=== PATIENT | male | born 1945 | race Caucasian/White ===

== ENCOUNTER 2017-02-21 11:51 | Emergency (ER) | payer OTHER, MEDICARE ==
[2016-05-14 11:11] VITALS: Ht 180.3 cm; Wt 68.0 kg
[~2017-02-21] VITALS: Ht 180.3 cm; Wt 68.0 kg
[~2017-02-21 11:51] MED LIST: ACE3 PO; ANTIEMETIC; ASP325 PO; ASPI-1471 PO; DOC100 PO; FERR-103 PO; FERR159T PO; FOL1 PO; HYD2 PO; HYDR-393 PO; HYDROCODONE PO; INSU100V24 SUBQ; LACT10SO58 PO; LANI SUBQ; LEVO750T27 PO; LIPA1CAP PO; LIPA1CAP59 PO; MAGN250T5 PO; MAGN400T36 PO; MEP50 PO; MET10 PO; METXL50 PO; MULTIVITAMIN PO; MVM PO; MYLL PO; NO MEDS CURRENTLY; NYSL PO; OMEP-125 PO; OMEP-153 PO; OMEP-218 PO; OND4 PO; ONDA4TAB PO; OXYC10TA67 PO; PAN40 PO; PER PO; PRO25 PO; SPIR25TA78 PO; THIA100T55 PO; TRAM-420 PO; [UNRECOGNIZED DRUG - CODE] IV; [UNRECOGNIZED DRUG - CODE] PO
[2017-02-21 11:59] VITALS: BP 145/99
--- NOTE | 2017-02-21 12:00 | ER Report ---
History and Physical Time Seen By MD: 11:59 HPI/ROS CHIEF COMPLAINT: Abdominal pain HISTORY OF PRESENT ILLNESS: 72-year-old male patient presents to emergency room with complaint of abdominal pain. Patient states that he's had pain for the last 4-5 days in the left upper quadrant. States that seems to radiate down to the left lower quadrant. He states he is not had any nausea, vomiting or diarrhea. Patient states that there is nothing seems to make the pain better or worse. Patient states that the pain has been a 9 out of 10. He states that he talked with his primary care provider who recommended that he come here for further evaluation. Patient has a significant past medical history for pancreatic cancer, esophageal cancer. REVIEW OF SYSTEMS: Respiratory: No cough, no dyspnea. Cardiovascular: No chest pain, no palpitations. Gastrointestinal: As noted above Musculoskeletal: No back pain. Allergies: Coded Allergies: No Known Drug Allergies (Verified , 02/21/17) Home Meds Active Scripts Oxycodone Hcl (OXYCODONE HCL) 5 Mg Capsule, 5 MG PO Q4-6H Y for PAIN, #20 CAPSULE Prov:ABBY SANTOS 02/21/17 Insulin Glargine (LANTUS) 100 Unit/Ml Soln, 10 UNIT SUBQ QHS, #1 VIAL 1 Refill Prov:LISHA MCDUFFIE MD 05/17/16 Oxycodone/Acetaminophen (OXYCODONE/ACETAMINOPHEN 5MG/325 MG) 5 Mg/325 Mg Tab, 1- 2 TAB PO Q4H Y for BREAKTHROUGH PAIN, #30 TAB 0 Refills Prov:ILSHA MCDUFFIE MD 05/17/16 Insulin Lispro (HUMALOG) 100 Unit/1 Ml Vial, 2-10 UNIT SUBQ SS Y for SLIDING SCALE INSULIN, #1 VIAL 1 Refill Prov:LISHA MCDUFFIE MD 05/17/16 Levofloxacin 750 Mg Tab (LEVOFLOXACIN 750 MG TAB) 750 Mg Tablet, 750 MG PO QDAY@ 10, #7 TAB 1 Refill Prov:LISHA MCDUFFIE MD 05/17/16 Reported Medications Lipase/Protease/Amylase (MIMI VERA 6,000 UNITS CAPSULE) 1 Each Capsule.dr, 3 EACH PO TID 05/14/16 Magnesium Oxide (MAGNESIUM OXIDE) 400 Mg Tablet, 400 MG PO DAILY 05/14/16 Ferrous Sulfate, Dried (IRON) 159 Mg Tablet.er, 65 MG PO QODAY 10/15/13 Aspirin (ASPIR 81) 81 Mg Tablet.dr, 81 MG PO QDAY, TAB 10/15/13 Omeprazole (OMEPRAZOLE) 20 Mg Capsule.dr, 1 CAP PO QDAY TAKE ONE CAPSULE BY MOUTH ONCE A DAY 10/15/13 Past Medical/Surgical History Patient has a past medical history of pneumonia, esophageal cancer, pancreatic cancer, reflux, elevated liver enzymes, hiatal hernia, frequent urination, back pain, substance abuse, alcohol abuse. Patient has a surgical history of esophageal resection, splenectomy, pancreatic mass removal, colonoscopy, rib removal, tonsillectomy. Patient has a surgical history of CAD, stroke, diabetes. Reviewed Nurses Notes: Yes Hx Smoking: Yes Smoking Status: Former Smoker Hx Substance Use Disorder: Yes Hx Alcohol Use: Yes Constitutional Vital Sign - Last 24 Hours 02/21/17 02/21/17 11:59 12:50 Temp 98.5 Pulse 83 Resp 18 B/P (MAP) 145/99 Pulse Ox 95 O2 Delivery Room Air O2 Flow Rate 2.0 Intake and Output 02/21/17 02/21/17 02/22/17 15:00 23:00 07:00 Intake Total 1000 ml Balance 1000 ml Physical Exam General Appearance: The patient is alert, has no immediate need for airway protection and no current signs of toxicity. ENT: Tympanic membranes are pearly-carey, auditory canals are patent, mucous membranes are moist. Respiratory: Chest is non tender, lungs are clear to auscultation. Cardiac: regular rate and rhythm Gastrointestinal: Abdomen is soft and tender in the left upper quadrant, no masses, bowel sounds normal. Musculoskeletal: Neck: Neck is supple and non tender. Extremities have full range of motion and are non tender. Skin: No rashes or lesions. DIFFERENTIAL DIAGNOSIS: After history and physical exam differential diagnosis was considered for abdominal pain including but not limited to appendicitis, cholecystitis, gastritis and urinary tract infection. Medical Decision Making Data Points Result Diagram: 02/21/17 1215 02/21/17 1215 Laboratory Hematology Test 02/21/17 12:15 02/21/17 12:23 02/21/17 13:14 Red Blood Count 4.15 M/uL (4.00-5.60) Mean Corpuscular Volume 104.3 fL (80.0-96.0) Mean Corpuscular Hemoglobin 35.5 pg (26.0-33.0) Mean Corpuscular Hemoglobin Concent 34.0 g/dL (32.0-36.0) Red Cell Distribution Width 14.7 % (11.5-14.5) Mean Platelet Volume 8.4 fL (7.2-11.1) Neutrophils (%) (Auto) 48.3 % (39.4-72.5) Lymphocytes (%) (Auto) 37.7 % (17.6-49.6) Monocytes (%) (Auto) 12.2 % (4.1-12.4) Eosinophils (%) (Auto) 1.1 % (0.4-6.7) Basophils (%) (Auto) 0.7 % (0.3-1.4) Nucleated RBC Relative Count (auto) 0.2 /100WBC Neutrophils # (Auto) 4.7 K/uL (2.0-7.4) Lymphocytes # (Auto) 3.6 K/uL (1.3-3.6) Monocytes # (Auto) 1.2 K/uL (0.3-1.0) Eosinophils # (Auto) 0.1 K/uL (0.0-0.5) Basophils # (Auto) 0.1 K/uL (0.0-0.1) Nucleated RBC Absolute Count (auto) 0.02 K/uL Peripheral Blood Smear Y/N Sodium Level 137 mmol/L (137-145) Potassium Level 4.0 mmol/L (3.5-5.0) Chloride Level 98 mmol/L (98-107) Carbon Dioxide Level 16 mmol/L (22-30) Blood Urea Nitrogen 8 mg/dl (9-21) Creatinine 0.80 mg/dl (0.66-1.25) Glomerular Filtration Rate Calc > 60.0 Random Glucose 110 mg/dl (75-110) Calcium Level 9.3 mg/dl (8.4-10.2) Total Bilirubin 0.7 mg/dl (0.2-1.3) Aspartate Amino Transf (AST/SGOT) 167 U/L (0-35) Alanine Aminotransferase (ALT/SGPT) 129 U/L (0-56) Alkaline Phosphatase 162 U/L (0-126) Total Protein 7.0 gm/dl (6.3-8.2) Albumin 3.9 g/dl (3.5-5.0) Amylase Level 86 U/L (0-110) Lipase 55 U/L (23-300) Whole Blood Glucose 100 mg/DL (75-110) Urine Color Yellow Urine Clarity Clear Urine pH 6.0 pH (4.8-9.5) Urine Specific Howell 1.012 Urine Protein Negative mg/dL (NEGATIVE) Urine Glucose (UA) Negative mg/dL (NEGATIVE) Urine Ketones 20 mg/dL (NEGATIVE) Urine Blood Negative (NEGATIVE) Urine Nitrite Negative (NEGATIVE) Urine Bilirubin Negative (NEGATIVE) Urine Urobilinogen Negative mg/dL (0.2-1.9) Urine Leukocyte Esterase Negative (NEGATIVE) Urine RBC None /HPF (0-2/HPF) Urine WBC 2 /HPF (0-5/HPF) Urine Squamous Epithelial Cells Many /LPF (</=FEW) Urine Bacteria Negative /HPF (NONE-FEW) Urine Mucus Few /HPF (NONE-FEW) Chemistry Test 02/21/17 12:15 02/21/17 12:23 02/21/17 13:14 White Blood Count 9.7 k/uL (4.5-11.0) Red Blood Count 4.15 M/uL (4.00-5.60) Hemoglobin 14.7 g/dL (14.0-18.0) Hematocrit 43.3 % (42.0-52.0) Mean Corpuscular Volume 104.3 fL (80.0-96.0) Mean Corpuscular Hemoglobin 35.5 pg (26.0-33.0) Mean Corpuscular Hemoglobin Concent 34.0 g/dL (32.0-36.0) Red Cell Distribution Width 14.7 % (11.5-14.5) Platelet Count 209 K/uL (150-450) Mean Platelet Volume 8.4 fL (7.2-11.1) Neutrophils (%) (Auto) 48.3 % (39.4-72.5) Lymphocytes (%) (Auto) 37.7 % (17.6-49.6) Monocytes (%) (Auto) 12.2 % (4.1-12.4) Eosinophils (%) (Auto) 1.1 % (0.4-6.7) Basophils (%) (Auto) 0.7 % (0.3-1.4) Nucleated RBC Relative Count (auto) 0.2 /100WBC Neutrophils # (Auto) 4.7 K/uL (2.0-7.4) Lymphocytes # (Auto) 3.6 K/uL (1.3-3.6) Monocytes # (Auto) 1.2 K/uL (0.3-1.0) Eosinophils # (Auto) 0.1 K/uL (0.0-0.5) Basophils # (Auto) 0.1 K/uL (0.0-0.1) Nucleated RBC Absolute Count (auto) 0.02 K/uL Peripheral Blood Smear Y/N Glomerular Filtration Rate Calc > 60.0 Calcium Level 9.3 mg/dl (8.4-10.2) Total Bilirubin 0.7 mg/dl (0.2-1.3) Aspartate Amino Transf (AST/SGOT) 167 U/L (0-35) Alanine Aminotransferase (ALT/SGPT) 129 U/L (0-56) Alkaline Phosphatase 162 U/L (0-126) Total Protein 7.0 gm/dl (6.3-8.2) Albumin 3.9 g/dl (3.5-5.0) Amylase Level 86 U/L (0-110) Lipase 55 U/L (23-300) Whole Blood Glucose 100 mg/DL (75-110) Urine Color Yellow Urine Clarity Clear Urine pH 6.0 pH (4.8-9.5) Urine Specific Howell 1.012 Urine Protein Negative mg/dL (NEGATIVE) Urine Glucose (UA) Negative mg/dL (NEGATIVE) Urine Ketones 20 mg/dL (NEGATIVE) Urine Blood Negative (NEGATIVE) Urine Nitrite Negative (NEGATIVE) Urine Bilirubin Negative (NEGATIVE) Urine Urobilinogen Negative mg/dL (0.2-1.9) Urine Leukocyte Esterase Negative (NEGATIVE) Urine RBC None /HPF (0-2/HPF) Urine WBC 2 /HPF (0-5/HPF) Urine Squamous Epithelial Cells Many /LPF (</=FEW) Urine Bacteria Negative /HPF (NONE-FEW) Urine Mucus Few /HPF (NONE-FEW) Urinalysis Test 02/21/17 13:14 Urine Color Yellow Urine Clarity Clear Urine pH 6.0 pH (4.8-9.5) Urine Specific Howell 1.012 Urine Protein Negative mg/dL (NEGATIVE) Urine Glucose (UA) Negative mg/dL (NEGATIVE) Urine Ketones 20 mg/dL (NEGATIVE) Urine Blood Negative (NEGATIVE) Urine Nitrite Negative (NEGATIVE) Urine Bilirubin Negative (NEGATIVE) Urine Urobilinogen Negative mg/dL (0.2-1.9) Urine Leukocyte Esterase Negative (NEGATIVE) Urine RBC None /HPF (0-2/HPF) Urine WBC 2 /HPF (0-5/HPF) Urine Squamous Epithelial Cells Many /LPF (</=FEW) Urine Bacteria Negative /HPF (NONE-FEW) Urine Mucus Few /HPF (NONE-FEW) EKG/Imaging Imaging ABDOMEN/PELVIS WITH CONTRAST HISTORY: Left lower abdomen pain, history of esophageal and pancreatic cancer TECHNIQUE: Following administration of IV contrast contiguous axial images acquired through the abdomen/pelvis. Coronal and sagittal reformatting also performed. Dose Lowering Technique One of the following dose optimization techniques was utilized in the performance of this exam: Automated exposure control; adjustment of the mA and/ or kV according to the patient's size; or use of an iterative reconstruction technique. Specific details can be referenced in the facility's radiology CT exam operational policy. CONTRAST: 75 mL Isovue-370 COMPARISON: September 04, 2010 FINDINGS: Visualized lung bases: There Is a diaphragmatic hernia on the left containing fat stomach, splenic flexure and small bowel Hepatobiliary: There are postsurgical changes from a cholecystectomy with diffuse hepatic steatosis Spleen: Nonvisualized Adrenals: Negative. Pancreas: Body and tail of the pancreas not identified. The head appears slightly heterogeneous Kidneys ureters or bladder: Kidneys appear unremarkable. The bladder is moderately distended Genitalia: Prostate gland is moderately enlarged, heterogeneous and impinges upon the floor the bladder GI: Much of the stomach is located above the diaphragm. There are scattered diverticula seen through out the colon most prominent in the left side although no CT evidence of acute diverticulitis. The appendix is visualized does not appear inflamed Vessels/spaces/nodes: There moderate diffuse vascular calcifications present. Collateral vessels are seen adjacent to the stomach. Bones/soft tissues: There are postsurgical changes from a ventral hernia repair with mesh. There is diastases of the rectus sheath with outward bowing of the rectus sheath. . No aggressive appearing bone lesions are seen Additional findings: None pertinent. 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 The head the pancreas appear slightly heterogeneous There is moderate distention of the urinary bladder. The prostate gland is moderately enlarged heterogeneous and impinges upon the floor the bladder Scattered diverticulosis of colon although no CT evidence of acute diverticulitis Postsurgical changes from a ventral hernia repair with mesh. There is diastases of the rectus sheath and outward bowing of the rectus sheath. Report Dictated By: Rakel Hyde MD at 02/21/2017 1:22 PM Report E-Signed By: Rakel Hyde MD at 02/21/2017 1:35 PM ED Course/Re-evaluation ED Course Patient was admitted to exam room, history and physical were obtained. The differential diagnoses were considered. On examination patient has tenderness to the left upper quadrant. A CBC, CMP, urinalysis, CT scan of the abdomen and pelvis were done. The lab results were unremarkable except the patient did have elevated liver enzymes, MCV. Appears that he is a chronic drinker. Patient had a CT scan which showed a diaphragmatic hernia, with splenic flexure, small bowel and stomach extending through. I believe this is likely the source the pain. I discussed the case with Dr. Dowling, general surgeon, who recommended friend patient back to where he had surgery. Patient did have surgery in [place] for his esophageal cancer. I spoke with the hvac sales engineer, Dr. Dee, at [facility] who recommended [facility] for follow-up. I discussed this with patient. He stated that he would like to contact Dr. Emery. I feel that there is no harm in him discussing his case with Dr. Emery. Patient will be given a limited supply of pain medication discharged home at this time. Patient verbalized understanding and agreement. Decision to Disposition Date: Feb 21, 2017 Decision to Disposition Time: 15:14 Depart Departure Latest Vital Signs Vital Signs Date Time Temp Pulse Resp B/P (MAP) Pulse Ox O2 Delivery O2 Flow Rate FiO2 02/21/17 12:50 2.0 02/21/17 11:59 98.5 83 18 145/99 95 Room Air Impression: Primary Impression: Hernia Condition: Improved New Scripts Oxycodone Hcl (OXYCODONE HCL) 5 Mg Capsule 5 MG PO Q4-6H Y for PAIN, #20 CAPSULE Prov: ABBY SANTOS DRYING TUNNEL OPERATOR 02/21/17 Patient Instructions: Hiatal Hernia (ED) Additional Instructions: Limit activity by pain. Increase fluid intake. Get plenty of rest. Follow up with Surgeon, either Dr. Emery or: [facility] [address] [place], [place] ABBY SANTOS Feb 21, 2017 12:00
[2017-02-21] MEDS ORDERED: NS(*) 0.9% 1000 ML BAG 1,000 ML IV ONE (12:04)
[2017-02-21] MEDS ORDERED: MORPHINE 4 MG/ML SYR IVP ONE (12:10)
[2017-02-21 12:31] LABS: PLATELET COUNT, AUTOMATED 209 K/uL (150-450)
[2017-02-21] MEDS ORDERED: IOPAMIDOL 76% 75 ML INFUS BTL 75 ML ONE (12:35)
[2017-02-21] MEDS ORDERED: NS 0.9% 50 ML VIAL 50 ML ONE (12:35)
--- NOTE | 2017-02-21 13:41 | RADIOLOGY IMAGING REPORT ---
FACILITY: [facility] PATIENT NAME: Renard Rai : 1945 MR: [id number] V: [id number] EXAM DATE: ORDERING PHYSICIAN: ABBY SANTOS TECHNOLOGIST: Location: [facility] [place] Patient: Renard Rai : 1945 Visit/Account:[id number] Date of Sevice: 02/21/2017 ABDOMEN/PELVIS WITH CONTRAST HISTORY: Left lower abdomen pain, history of esophageal and pancreatic cancer TECHNIQUE: Following administration of IV contrast contiguous axial images acquired through the abdom en/pelvis. Coronal and sagittal reformatting also performed. Dose Lowering Technique One of the following dose optimization techniques was utilized in the performance of this exam: Autom ated exposure control; adjustment of the mA and/or kV according to the patient's size; or use of an i terative reconstruction technique. Specific details can be referenced in the facility's radiology C T exam operational policy. CONTRAST: 75 mL Isovue-370 COMPARISON: September 04, 2010 FINDINGS: Visualized lung bases: There Is a diaphragmatic hernia on the left containing fat stomach, splenic fl exure and small bowel Hepatobiliary: There are postsurgical changes from a cholecystectomy with diffuse hepatic steatosis Spleen: Nonvisualized Adrenals: Negative. Pancreas: Body and tail of the pancreas not identified. The head appears slightly heterogeneous Kidneys ureters or bladder: Kidneys appear unremarkable. The bladder is moderately distended Genitalia: Prostate gland is moderately enlarged, heterogeneous and impinges upon the floor the blad peng GI: Much of the stomach is located above the diaphragm. There are scattered diverticula seen throug h out the colon most prominent in the left side although no CT evidence of acute diverticulitis. The appendix is visualized does not appear inflamed Vessels/spaces/nodes: There moderate diffuse vascular calcifications present. Collateral vessels ar e seen adjacent to the stomach. Bones/soft tissues: There are postsurgical changes from a ventral hernia repair with mesh. There is diastases of the rectus sheath with outward bowing of the rectus sheath. . No aggressive appearing bone lesions are seen Additional findings: None pertinent. 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 The head the pancreas appear slightly heterogeneous There is moderate distention of the urinary bladder. The prostate gland is moderately enlarged heter ogeneous and impinges upon the floor the bladder Scattered diverticulosis of colon although no CT evidence of acute diverticulitis Postsurgical changes from a ventral hernia repair with mesh. There is diastases of the rectus sheath and outward bowing of the rectus sheath. Report Dictated By: Rakel Hyde MD at 02/21/2017 1:22 PM Report E-Signed By: Rakel Hyde MD at 02/21/2017 1:35 PM WSN:[id number]
[2017-02-21] MEDS ORDERED: oxyCODONE HCL 5 MG CAP PO ONE (14:50)
[2017-02-21] MEDS ORDERED: OXYC5CAP21 PO (15:14)
== END 2017-02-21 15:20 | disposition home or self-care (01) ==
LOC: ER 12:03
DX: K44.9 Diaphragmatic hernia without obstruction or gangrene (principal); E11.9 Type 2 diabetes mellitus without complications
CPT/HCPCS: 36416; 74177; 81001; 82150; 82948; 83690; 85025; 87088; 96361; 96374; 99284; J2270; J7030; J7050; Q9967; 82040; 82247; 82310; 82374; 82435; 82565; 82947; 84075; 84132; 84155; 84295; 84450; 84460; 84520

== ENCOUNTER 2017-08-24 10:12 | Emergency (ER) | payer MEDICARE ==
[2016-05-14 11:11] VITALS: Wt 68.1 kg
[~2017-08-24 10:12] MED LIST changes: +OXYC5CAP21 PO
[2017-08-24] MEDS ORDERED: METF-411 PO (10:26)
[2017-08-24] MEDS ORDERED: FAMOTIDINE(*) 20MG/50ML PREMIX 50 ML IVPB ONE (11:11)
[2017-08-24 11:30] LABS: PLATELET COUNT, AUTOMATED 203 K/uL (150-450)
[2017-08-24] MEDS ORDERED: IOPAMIDOL 76% 100 ML INFUS BTL 100 ML ONE (12:20)
--- NOTE | 2017-08-24 13:23 | RADIOLOGY IMAGING REPORT ---
FACILITY: [facility] [place] PATIENT NAME: Renard Rai : 1945 MR: [id number] V: [id number] EXAM DATE: ORDERING PHYSICIAN: TALON RICHARD TECHNOLOGIST: Location: [facility] [place] Patient: Renard Rai : 1945 Visit/Account:[id number] Date of Sevice: 08/24/2017 CT abdomen and pelvis with IV contrast Indication: Abdominal pain. Comparison: 02/21/2017.. Technique: Axial CT images were obtained through the abdomen and pelvis during injection of nonioni c iodinated intravenous contrast. Reformatted coronal and sagittal images were also obtained. One of the following dose optimization techniques was utilized in the performance of this exam: Autom ated exposure control; adjustment of the mA and/or kV according to the patient's size; or use of an i terative reconstruction technique. Specific details can be referenced in the facility's radiology C T exam operational policy. Contrast: 75 ml of Isovue-370 IV contrast. Findings: Lower lung epperson: Lung bases are clear. There is still a moderate left diaphragmatic hernia containi ng fat, vessels and bowel. Multiple surgical clips. No change in its appearance from the previous exa m. Liver: No focal parenchymal abnormality of the liver. Biliary: Status post cholecystectomy. Biliary system is unremarkable. Pancreas: This is pancreas does show some mild fatty infiltration. No focal abnormality. Spleen: Surgically removed. Adrenal glands: Unremarkable. Kidneys / retroperitoneum: No evidence of nephrolithiasis or hydronephrosis the left kidney does show a stable subcentimeter hypodensity which too small to characterize and statistically tiny cyst. No s olid renal lesions. Bowel / peritoneum / mesenteries: There is diffuse: Diverticula more so in the sigmoid region. No per icolonic inflammation. The cecum does show circumferential wall thickening without a focal lesion lamonte ntified or surrounding inflammation. The colon shows no other focal abnormality. The small bowel show s no focal abnormality or obstruction. The stomach shows a stable moderate hiatal hernia without othe r focal abnormality. No free air, free fluid, fluid collections or areas of inflammation. There is a small [place] ventr al hernia containing fat which is stable. Lymph node assessment: No pathologic adenopathy identified. Pelvic structures: Prostate is enlarged and heterogeneous without focal abnormality. This does cau se some impression to the urinary bladder. The remaining pelvic structures visualized within normal l imits. Vessels: Mild atherosclerotic calcifications seen throughout a nonaneurysmal abdominal aorta and bran ches. Musculoskeletal / Body wall: No acute or aggressive osseous abnormality. Old healing fractures of the left L3 and L4 transverse process. Continued degenerative changes of the spine with minimal posterio r spinal listhesis of L2 over L3. IMPRESSION: 1. The cecum does show circumferential wall thickening without defined lesion or surrounding inflamma tion. This could be secondary to early focal colitis. Other etiologies could be due to neoplastic inv olvement. Follow-up colonoscopy may be able to further evaluate. 2. Diverticulosis without radiographic indication of diverticulitis. 3. Continued moderate left diaphragmatic hernia containing fat, vessels and bowel without acute abnor mality. 4. Other stable chronic findings as above. Report Dictated By: Gagan Escoto at 08/24/2017 1:06 PM Report E-Signed By: Gagan Escoto at 08/24/2017 1:19 PM WSN:[id number]
[2017-08-24 13:30] VITALS: BP 120/79
--- NOTE | 2017-08-24 13:35 | ER Report ---
History and Physical Time Seen By MD: 11:00 Hx. of Stated Complaint: "my hiatal hernia is poking through" for 3 days, pt reports "self medicating" with whiskey, pt reports the [facility] "usually" gives him hydrocodone but has recently been "weaning" him off HPI/ROS CHIEF COMPLAINT: Abdominal pain HISTORY OF PRESENT ILLNESS: Patient is a 72-year-old male who was the ED with complaint of abdominal pain for the past 4 days. He states that he has been having intermittent abdominal pain for the past 1-2 years due to a hiatal hernia. He states that he has an appointment with Dr. Allred, surgery, for evaluation of this in 2 weeks. He states that he has only noted pain and denies any nausea, vomiting, diarrhea. He states that he has had normal bowel movements without any black or bloody bowel movements appreciated. Patient denies any chest pain or shortness of breath. He states that he has a history of esophageal pancreatic cancer and has had performed move full esophagus and pancreas. He states that he no longer has a surgeon in [place] that he sees. He states that he has seen Dr. Dr. Emery the past as well. He denies any fever. He has not taken any medication for the pain. He states that he has been self-medicating with whiskey. He is uncertain how much he has drank today. REVIEW OF SYSTEMS: Constitutional: No fever, no chills. Eyes: No discharge. ENT: No sore throat. Cardiovascular: No chest pain, no palpitations. Respiratory: No cough, no shortness of breath. Gastrointestinal: See history of present illness. Genitourinary: No hematuria. Musculoskeletal: No back pain. Skin: No rashes. Neurological: No headache. Allergies: Coded Allergies: No Known Drug Allergies (Verified , 08/24/17) Home Meds Active Scripts Insulin Lispro 100 Un/Ml Vial (HUMALOG 100 U/ML VIAL) 100 Unit/1 Ml Vial, 2-10 UNIT SUBQ SS Y for SLIDING SCALE INSULIN, #1 VIAL 1 Refill Prov:LISHA MCDUFFIE MD 05/17/16 Reported Medications Metformin Hcl (METFORMIN HCL) 500 Mg Tablet, PO BID, TAB 08/24/17 Lipase/Protease/Amylase (MIMI VERA 6,000 UNITS CAPSULE) 1 Each Capsule.dr, 3 EACH PO TID 05/14/16 Magnesium Oxide (MAGNESIUM OXIDE) 400 Mg Tablet, 400 MG PO DAILY 05/14/16 Ferrous Sulfate, Dried (IRON) 159 Mg Tablet.er, 65 MG PO QODAY 10/15/13 Aspirin (ASPIR 81) 81 Mg Tablet.dr, 81 MG PO QDAY, TAB 10/15/13 Discontinued Reported Medications Omeprazole (OMEPRAZOLE) 20 Mg Capsule.dr, 1 CAP PO QDAY TAKE ONE CAPSULE BY MOUTH ONCE A DAY 10/15/13 Discontinued Scripts Oxycodone Hcl (OXYCODONE HCL) 5 Mg Capsule, 5 MG PO Q4-6H Y for PAIN, #20 CAPSULE Prov:ABBY SANTOS RING STRIKER 02/21/17 Insulin Glargine (LANTUS) 100 Unit/Ml Soln, 10 UNIT SUBQ QHS, #1 VIAL 1 Refill Prov:LISHA MCDUFFIE MD 05/17/16 Oxycodone/Acetaminophen (OXYCODONE/ACETAMINOPHEN 5MG/325 MG) 5 Mg/325 Mg Tab, 1- 2 TAB PO Q4H Y for BREAKTHROUGH PAIN, #30 TAB 0 Refills Prov:LISHA MCDUFFIE MD 05/17/16 Levofloxacin 750 Mg Tab (LEVOFLOXACIN 750 MG TAB) 750 Mg Tablet, 750 MG PO QDAY@ 10, #7 TAB 1 Refill Prov:LISHA MCDUFFIE MD 05/17/16 Reviewed Nurses Notes: Yes Old Medical Records Reviewed: Yes Hx Smoking: Yes Smoking Status: Former Smoker Hx Substance Use Disorder: Yes Hx Alcohol Use: Yes Constitutional Vital Sign - Last 24 Hours 08/24/17 08/24/17 08/24/17 08/24/17 10:16 10:16 10:30 10:45 Temp 97.5 Pulse 75 82 81 Resp 16 B/P (MAP) 139/86 139/86 (103) 130/85 (100) 126/95 (105) Pulse Ox 90 88 87 O2 Delivery Room Air 08/24/17 08/24/17 08/24/17 08/24/17 11:00 11:15 11:30 11:45 Pulse 77 88 83 83 B/P (MAP) 123/84 (97) 119/81 (94) 105/78 (87) 116/86 (96) Pulse Ox 90 89 89 89 Intake and Output 08/24/17 08/24/17 08/25/17 14:59 22:59 06:59 Intake Total 50 ml Balance 50 ml Physical Exam General Appearance: The patient is alert, has no immediate need for airway protection and no signs of toxicity. Patient appears to be no acute distress. Eyes: Pupils equal and round no pallor or injection. ENT, Mouth: Mucous membranes are moist. Respiratory: There are no retractions, lungs are clear to auscultation. Cardiovascular: Regular rate and rhythm. Gastrointestinal: There is some abdominal pain with palpation of the epigastric region. Normal bowel sounds in all 4 quadrants. Bowel regarding his present. Skin: Warm and dry, no rashes. Musculoskeletal: Neck is supple non tender. Extremities are nontender, nonswollen and have full range of motion. DIFFERENTIAL DIAGNOSIS: After history and physical exam differential diagnosis was considered for abdominal pain including but not limited to appendicitis, cholecystitis, gastritis and urinary tract infection. Medical Decision Making Data Points Result Diagram: 08/24/17 1123 08/24/17 1123 Laboratory Hematology Test 08/24/17 11:23 08/24/17 11:36 Red Blood Count 4.25 M/uL (4.00-5.60) Mean Corpuscular Volume 101.9 fL (80.0-96.0) Mean Corpuscular Hemoglobin 35.1 pg (26.0-33.0) Mean Corpuscular Hemoglobin Concent 34.4 g/dL (32.0-36.0) Red Cell Distribution Width 14.5 % (11.5-14.5) Mean Platelet Volume 8.2 fL (7.2-11.1) Neutrophils (%) (Auto) 42.0 % (39.4-72.5) Lymphocytes (%) (Auto) 43.4 % (17.6-49.6) Monocytes (%) (Auto) 11.2 % (4.1-12.4) Eosinophils (%) (Auto) 1.9 % (0.4-6.7) Basophils (%) (Auto) 1.5 % (0.3-1.4) Nucleated RBC Relative Count (auto) 0.1 /100WBC Neutrophils # (Auto) 2.8 K/uL (2.0-7.4) Lymphocytes # (Auto) 2.9 K/uL (1.3-3.6) Monocytes # (Auto) 0.7 K/uL (0.3-1.0) Eosinophils # (Auto) 0.1 K/uL (0.0-0.5) Basophils # (Auto) 0.1 K/uL (0.0-0.1) Nucleated RBC Absolute Count (auto) 0.01 K/uL Sodium Level 139 mmol/L (137-145) Potassium Level 3.6 mmol/L (3.5-5.0) Chloride Level 98 mmol/L (98-107) Carbon Dioxide Level 17 mmol/L (22-30) Blood Urea Nitrogen 6 mg/dl (9-21) Creatinine 0.80 mg/dl (0.66-1.25) Glomerular Filtration Rate Calc > 60.0 Random Glucose 111 mg/dl (75-110) Calcium Level 8.8 mg/dl (8.4-10.2) Total Bilirubin 0.8 mg/dl (0.2-1.3) Aspartate Amino Transf (AST/SGOT) 141 U/L (0-35) Alanine Aminotransferase (ALT/SGPT) 97 U/L (0-56) Alkaline Phosphatase 140 U/L (0-126) Total Protein 7.3 g/dl (6.3-8.2) Albumin 4.2 g/dl (3.5-5.0) Lipase 31 U/L (23-300) Serum Alcohol 275 mg/dl Urine Color Yellow Urine Clarity Clear Urine pH 6.0 pH (4.8-9.5) Urine Specific [place] 1.005 Urine Protein Negative mg/dL (NEGATIVE) Urine Glucose (UA) Negative mg/dL (NEGATIVE) Urine Ketones Trace mg/dL (NEGATIVE) Urine Blood Negative (NEGATIVE) Urine Nitrite Negative (NEGATIVE) Urine Bilirubin Negative (NEGATIVE) Urine Urobilinogen 2.0 mg/dL (0.2-1.9) Urine Leukocyte Esterase Negative (NEGATIVE) Urine RBC <1 /HPF (0-2/HPF) Urine WBC <1 /HPF (0-5/HPF) Urine Squamous Epithelial Cells Moderate /LPF (</=FEW) Urine Bacteria Negative /HPF (NONE-FEW) Urine Mucus None /HPF (NONE-FEW) Chemistry Test 08/24/17 11:23 08/24/17 11:36 White Blood Count 6.6 k/uL (4.5-11.0) Red Blood Count 4.25 M/uL (4.00-5.60) Hemoglobin 14.9 g/dL (14.0-18.0) Hematocrit 43.3 % (42.0-52.0) Mean Corpuscular Volume 101.9 fL (80.0-96.0) Mean Corpuscular Hemoglobin 35.1 pg (26.0-33.0) Mean Corpuscular Hemoglobin Concent 34.4 g/dL (32.0-36.0) Red Cell Distribution Width 14.5 % (11.5-14.5) Platelet Count 203 K/uL (150-450) Mean Platelet Volume 8.2 fL (7.2-11.1) Neutrophils (%) (Auto) 42.0 % (39.4-72.5) Lymphocytes (%) (Auto) 43.4 % (17.6-49.6) Monocytes (%) (Auto) 11.2 % (4.1-12.4) Eosinophils (%) (Auto) 1.9 % (0.4-6.7) Basophils (%) (Auto) 1.5 % (0.3-1.4) Nucleated RBC Relative Count (auto) 0.1 /100WBC Neutrophils # (Auto) 2.8 K/uL (2.0-7.4) Lymphocytes # (Auto) 2.9 K/uL (1.3-3.6) Monocytes # (Auto) 0.7 K/uL (0.3-1.0) Eosinophils # (Auto) 0.1 K/uL (0.0-0.5) Basophils # (Auto) 0.1 K/uL (0.0-0.1) Nucleated RBC Absolute Count (auto) 0.01 K/uL Glomerular Filtration Rate Calc > 60.0 Calcium Level 8.8 mg/dl (8.4-10.2) Total Bilirubin 0.8 mg/dl (0.2-1.3) Aspartate Amino Transf (AST/SGOT) 141 U/L (0-35) Alanine Aminotransferase (ALT/SGPT) 97 U/L (0-56) Alkaline Phosphatase 140 U/L (0-126) Total Protein 7.3 g/dl (6.3-8.2) Albumin 4.2 g/dl (3.5-5.0) Lipase 31 U/L (23-300) Serum Alcohol 275 mg/dl Urine Color Yellow Urine Clarity Clear Urine pH 6.0 pH (4.8-9.5) Urine Specific [place] 1.005 Urine Protein Negative mg/dL (NEGATIVE) Urine Glucose (UA) Negative mg/dL (NEGATIVE) Urine Ketones Trace mg/dL (NEGATIVE) Urine Blood Negative (NEGATIVE) Urine Nitrite Negative (NEGATIVE) Urine Bilirubin Negative (NEGATIVE) Urine Urobilinogen 2.0 mg/dL (0.2-1.9) Urine Leukocyte Esterase Negative (NEGATIVE) Urine RBC <1 /HPF (0-2/HPF) Urine WBC <1 /HPF (0-5/HPF) Urine Squamous Epithelial Cells Moderate /LPF (</=FEW) Urine Bacteria Negative /HPF (NONE-FEW) Urine Mucus None /HPF (NONE-FEW) Toxicology Test 08/24/17 11:23 Serum Alcohol 275 mg/dl Urinalysis Test 08/24/17 11:36 Urine Color Yellow Urine Clarity Clear Urine pH 6.0 pH (4.8-9.5) Urine Specific [place] 1.005 Urine Protein Negative mg/dL (NEGATIVE) Urine Glucose (UA) Negative mg/dL (NEGATIVE) Urine Ketones Trace mg/dL (NEGATIVE) Urine Blood Negative (NEGATIVE) Urine Nitrite Negative (NEGATIVE) Urine Bilirubin Negative (NEGATIVE) Urine Urobilinogen 2.0 mg/dL (0.2-1.9) Urine Leukocyte Esterase Negative (NEGATIVE) Urine RBC <1 /HPF (0-2/HPF) Urine WBC <1 /HPF (0-5/HPF) Urine Squamous Epithelial Cells Moderate /LPF (</=FEW) Urine Bacteria Negative /HPF (NONE-FEW) Urine Mucus None /HPF (NONE-FEW) EKG/Imaging Imaging CT Abdomen/Pelvis: IMPRESSION: 1. The cecum does show circumferential wall thickening without defined lesion or surrounding inflammation. This could be secondary to early focal colitis. Other etiologies could be due to neoplastic involvement. Follow-up colonoscopy may be able to further evaluate. 2. Diverticulosis without radiographic indication of diverticulitis. 3. Continued moderate left diaphragmatic hernia containing fat, vessels and bowel without acute abnormality. 4. Other stable chronic findings as above. Report Dictated By: Gagan Escoto at 08/24/2017 1:06 PM Report E-Signed By: Gagan Escoto at 08/24/2017 1:19 PM ED Course/Re-evaluation ED Course He has elevation of his liver enzymes likely secondary to alcohol intoxication. His alcohol level is at 275. Patient was given 20 mg IV Pepcid with some relief. 08/24/2017 1:33:07 pm - discussed CT results with patient. It appears that he does have some colonic wall thickening that should be evaluated with colonoscopy. He also does have his hiatal hernia but without any acute abnormalities appreciated. We'll refer patient to Dr. Allred, surgery who he does have an appointment with for further evaluation of these issues on CT. Decision to Disposition Date: Aug 24, 2017 Decision to Disposition Time: 13:33 Depart Departure Latest Vital Signs Vital Signs Date Time Temp Pulse Resp B/P (MAP) Pulse Ox O2 Delivery O2 Flow Rate FiO2 08/24/17 11:45 83 116/86 (96) 89 08/24/17 10:16 97.5 16 Room Air Impression: Primary Impression: Abdominal pain Additional Impressions: Hiatal hernia Colonic thickening Condition: Improved Disposition: HOME OR SELF-CARE Referrals: JUSTA MONTGOMERY MD Patient Instructions: Abdominal Pain (ED), Epigastric Pain (ED), Hiatal Hernia (ED) Additional Instructions: Stay well-hydrated. Follow with primary care provider and Gen. surgery in 2-3 days. If having any worsening or concerning symptoms may return to the emergency department. Problem Qualifiers Primary Impression: Abdominal pain Abdominal location: epigastric Qualified Codes: R10.13 - Epigastric pain TALON RICHARD PA-C Aug 24, 2017 13:35
== END 2017-08-24 13:56 | disposition home or self-care (01) ==
LOC: ER 10:21
DX: K44.9 Diaphragmatic hernia without obstruction or gangrene (principal); R10.9 Unspecified abdominal pain; K63.89 Other specified diseases of intestine
CPT/HCPCS: 74177; 81001; 83690; 85025; 96374; 99283; G0480; J3490; Q9967; 80320; 82040; 82247; 82310; 82374; 82435; 82565; 82947; 84075; 84132; 84155; 84295; 84450; 84460; 84520

== ENCOUNTER → 2017-08-26 | Outpatient (CLI) | payer MEDICARE ==
[~2017-08-26] MED LIST changes: +METF-411 PO
--- NOTE | 2017-08-26 20:20 | RADIOLOGY IMAGING REPORT ---
FACILITY: [facility] PATIENT NAME: Renard Rai : 03/19/1971 MR: [id number] V: [id number] EXAM DATE: ORDERING PHYSICIAN: JUSTA MONTGOMERY TECHNOLOGIST: Location: [facility] Patient: Renard Rai : 03/19/1971 Visit/Account:[id number] Date of Sevice: 08/26/2017 2 VIEWS CHEST INDICATION: Chronic cough. COMPARISON: None available FINDINGS: Cardiomediastinal silhouette and pulmonary vessels within normal limits. There is no focal infiltrate or lobar consolidation. There is no pneumothorax or pleural effusion. No nodule. Upper abdomen is unremarkable. Surgical clips in the left upper abdomen. No acute bony abnormality. IMPRESSION: 1. No acute cardiopulmonary process. Report Dictated By: Gagan Escoto at 08/26/2017 8:13 PM Report E-Signed By: Gagan Escoto at 08/26/2017 8:15 PM WSN:[id number]
--- NOTE | 2017-08-29 17:21 | RADIOLOGY IMAGING REPORT ---
FACILITY: [facility] [place] PATIENT NAME: Renard Rai : 1945 MR: [id number] V: [id number] EXAM DATE: ORDERING PHYSICIAN: JUSTA MONTGOMERY TECHNOLOGIST: Location: [facility] [place] Patient: Renard Rai : 1945 Visit/Account:[id number] Date of Sevice: 08/26/2017 CHEST PA AND LAT INDICATION: Shortness of breath COMPARISON: 05/14/2016 FINDINGS: Heart size within normal limits. There is no focal infiltrate or lobar consolidation. Scarring is again noted within the left lung There is no pneumothorax or pleural effusion. IMPRESSION: 1. No acute cardiopulmonary process. Report Dictated By: Darrell Radford at 08/29/2017 5:16 PM Report E-Signed By: Darrell Radford at 08/29/2017 5:17 PM WSN:[id number]
== END ==
LOC: RAD 16:31 → EDUNIT# 16:31
PROVIDERS: ATTEND Surgery
DX: R05 Cough (principal); R06.02 Shortness of breath; R68.83 Chills (without fever)
CPT/HCPCS: 71046

== ENCOUNTER 2017-12-01 17:39 | Emergency (ER) | payer MEDICARE ==
[2016-05-14 11:11] VITALS: Wt 68.0 kg
[~2017-12-01 17:39] MED LIST changes: -GABA-549 PO; -MULT-40; -TAMS0.4C70 PO
[2017-12-01] MEDS ORDERED: NS(*) 0.9% 1000 ML BAG 1,000 ML IV ONE ×2 (18:01→18:30)
[2017-12-01] MEDS ORDERED: GABA-549 PO (18:04)
[2017-12-01] MEDS ORDERED: TAMS0.4C70 PO (18:04)
[2017-12-01] MEDS ORDERED: LIPA1CAP59 PO (18:04)
[2017-12-01] MEDS ORDERED: MULT-40 (18:04)
[2017-12-01] MEDS ORDERED: ASPI-1471 PO (18:04)
--- NOTE | 2017-12-01 18:07 | ER Report ---
History and Physical Time Seen By MD: 18:00 Hx. of Stated Complaint: WEAKNESS HPI/ROS CHIEF COMPLAINT: Weakness, illness HISTORY OF PRESENT ILLNESS: 72-year-old male with history of distant alcoholism, pancreatic esophageal cancer status post resection. Presents with 2 days of worsening illness. He denies fever, chills, productive cough, shortness of breath or vomiting. He just describes general weakness and fatigue. He appears grossly dehydrated. He notes no dysuria and no diarrhea. Fingerstick glucose was documented at 107. He has a type II diabetic, insulin required. He denies chest pain. He has grossly hypotensive. Patient admits to no less than 3 shots of alcohol per day. His last shot of alcohol was noon today REVIEW OF SYSTEMS: Respiratory: No cough, no dyspnea. Cardiovascular: No chest pain, no palpitations. Gastrointestinal: No vomiting, no abdominal pain. Musculoskeletal: No back pain. Allergies: Coded Allergies: No Known Drug Allergies (Verified , 12/01/17) Home Meds Active Scripts Insulin Lispro 100 Un/Ml Vial (HUMALOG 100 U/ML VIAL) 100 Unit/1 Ml Vial, 2-10 UNIT SUBQ SS PRN for SLIDING SCALE INSULIN, #1 VIAL 1 Refill Prov:LISHA MCDUFFIE MD 05/17/16 Reported Medications Multivit-Min/Iron Fum/Folic AC (Rkisb-Kvtsysq-Rqqlzupo Tablet) 7.5 Mg Iron-400 Mcg Tablet, DAILY 12/01/17 Aspirin (ASPIR 81) 81 Mg Tablet.dr, 81 MG PO QDAY, TAB 12/01/17 Lipase/Protease/Amylase (CREON DR 6,000 UNITS CAPSULE) 1 Each Capsule.dr, 1 EACH PO 2-4XD for Nausea 12/01/17 Tamsulosin Hcl (TAMSULOSIN HCL) 0.4 Mg Cap.er.24h, 0.4 MG PO QDAY, CAP 12/01/17 Gabapentin (GABAPENTIN) 300 Mg Capsule, 300 MG PO BID, CAPSULE 12/01/17 Metformin Hcl (METFORMIN HCL) 500 Mg Tablet, PO BID, TAB 08/24/17 Past Medical/Surgical History Patient has a past medical history of pneumonia, esophageal cancer, pancreatic cancer, reflux, elevated liver enzymes, hiatal hernia, frequent urination, back pain, substance abuse, alcohol abuse. Patient has a surgical history of esophageal resection, splenectomy, pancreatic mass removal, colonoscopy, rib removal, tonsillectomy. Patient has a surgical history of CAD, stroke, diabetes. Hx Smoking: Yes Smoking Status: Never Smoker, Former Smoker Hx Substance Use Disorder: Yes Hx Alcohol Use: Yes Constitutional Vital Sign - Last 24 Hours 12/01/17 12/01/17 12/01/17 12/01/17 17:39 17:47 17:49 17:54 Temp 97.5 Pulse 118 105 101 Resp 11 12 12 B/P (MAP) 85/50 (62) 85/50 Pulse Ox 92 91 94 O2 Delivery Room Air Room Air Room Air 12/01/17 12/01/17 12/01/17 12/01/17 17:56 18:00 18:09 18:15 Pulse 111 Resp 13 B/P (MAP) 72/54 (60) 87/47 (60) 90/55 (67) Pulse Ox 92 O2 Delivery Room Air 12/01/17 12/01/17 12/01/17 12/01/17 18:20 18:30 18:35 18:40 Pulse 110 112 108 Resp 14 16 12 B/P (MAP) 92/57 (69) Pulse Ox 92 92 93 O2 Delivery Room Air Room Air Room Air 12/01/17 12/01/17 12/01/17 12/01/17 18:45 18:55 19:00 19:10 Pulse 120 113 Resp 21 16 B/P (MAP) 95/52 (66) 96/47 (63) Pulse Ox 96 91 O2 Delivery Room Air Room Air 12/01/17 12/01/17 12/01/17 12/01/17 19:15 19:30 19:35 19:45 Pulse 109 111 111 Resp 13 20 13 B/P (MAP) 100/49 (66) 83/60 (68) 104/56 (72) Pulse Ox 93 90 96 O2 Delivery Room Air Room Air Room Air 12/01/17 12/01/17 12/01/17 12/01/17 19:50 20:00 20:05 20:15 Pulse 109 117 Resp 16 27 B/P (MAP) 106/57 (73) 85/54 (64) Pulse Ox 91 92 O2 Delivery Room Air Room Air 12/01/17 12/01/17 12/01/17 12/01/17 20:20 20:25 20:30 20:40 Pulse 111 112 110 Resp 16 10 13 B/P (MAP) 102/69 (80) Pulse Ox 93 95 95 O2 Delivery Room Air Room Air Room Air 12/01/17 12/01/17 12/01/17 12/01/17 20:45 20:50 21:00 21:05 Pulse 111 112 Resp 13 16 B/P (MAP) 104/63 (77) 96/59 (71) Pulse Ox 94 94 O2 Delivery Room Air Room Air 12/01/17 21:15 B/P (MAP) 105/56 (72) Physical Exam Vital signs stable, grossly hypotensive 72/52, mildly tachycardiac at 109. Pulse ox normal General Appearance: The patient is alert, has no immediate need for airway protection and no current signs of toxicity. Slightly pale appearing, dehydrated, decreased turgor HEENT: Pupils equal and round no injection. Anicteric sclera, oropharynx with mild erythema Respiratory: Chest is non tender, lungs are clear to auscultation. Cardiac: regular rate and rhythm Gastrointestinal: Abdomen is soft and non tender, no masses, bowel sounds normal. Musculoskeletal: Neck: Neck is supple and non tender. No JVD, no lymphadenopathy Extremities have full range of motion and are non tender. No edema, no calf tenderness Skin: No rashes or lesions. DIFFERENTIAL DIAGNOSIS: After history and physical exam differential diagnosis was considered for weakness including but not limited to electrolyte abnormality, depression, anxiety, CVA, spinal cord abnormality, and infectious causes. Medical Decision Making Data Points Result Diagram: 12/01/17 1745 12/01/17 1745 Laboratory Hematology Test 12/01/17 17:45 12/01/17 18:40 12/01/17 20:13 Red Blood Count 4.30 M/uL (4.00-5.60) Mean Corpuscular Volume 110.6 fL (80.0-96.0) Mean Corpuscular Hemoglobin 36.6 pg (26.0-33.0) Mean Corpuscular Hemoglobin Concent 33.1 g/dL (32.0-36.0) Red Cell Distribution Width 15.0 % (11.5-14.5) Mean Platelet Volume 9.2 fL (7.2-11.1) Neutrophils (%) (Auto) 74.1 % (39.4-72.5) Lymphocytes (%) (Auto) 17.8 % (17.6-49.6) Monocytes (%) (Auto) 7.4 % (4.1-12.4) Eosinophils (%) (Auto) 0.4 % (0.4-6.7) Basophils (%) (Auto) 0.3 % (0.3-1.4) Nucleated RBC Relative Count (auto) 0.1 /100WBC Neutrophils # (Auto) 5.7 K/uL (2.0-7.4) Lymphocytes # (Auto) 1.4 K/uL (1.3-3.6) Monocytes # (Auto) 0.6 K/uL (0.3-1.0) Eosinophils # (Auto) 0.0 K/uL (0.0-0.5) Basophils # (Auto) 0.0 K/uL (0.0-0.1) Nucleated RBC Absolute Count (auto) 0.01 K/uL Peripheral Blood Smear Yes Y/N Sodium Level 139 mmol/L (137-145) Potassium Level 5.1 mmol/L (3.5-5.0) Chloride Level 97 mmol/L (98-107) Carbon Dioxide Level 8 mmol/L (22-30) Blood Urea Nitrogen 18 mg/dl (9-21) Creatinine 1.30 mg/dl (0.66-1.25) Glomerular Filtration Rate Calc 54.6 Random Glucose 90 mg/dl (75-110) Lactate 11.7 mmol/L (0.7-2.1) Calcium Level 9.0 mg/dl (8.4-10.2) Total Bilirubin 0.8 mg/dl (0.2-1.3) Aspartate Amino Transf (AST/SGOT) 291 U/L (0-35) Alanine Aminotransferase (ALT/SGPT) 160 U/L (0-56) Alkaline Phosphatase 153 U/L (0-126) Troponin I 0.013 ng/ml C-Reactive Protein < 0.5 mg/dl (<1.0) Total Protein 7.4 g/dl (6.3-8.2) Albumin 4.1 g/dl (3.5-5.0) Lipase 56 U/L (23-300) Serum Alcohol 293 mg/dl Acetone, Qualitative Negative Blood Gas Puncture Site Right radial Blood Gas Patient Temperature 97.5 DEGREES Arterial Blood pH 7.03 (7.35-7.45) Arterial Blood Partial Pressure CO2 < 25 mmHg (32-37) Arterial Blood Partial Pressure O2 82 mmHg (60-80) Arterial Blood HCO3 5 mmol/L (20-26) Arterial Blood Oxygen Saturation 21 % (92-100) Arterial Blood Base Excess -26.0 mmol/L Yong Test Acceptable Oxygen Liters/Minute Room air Urine Color Yellow Urine Clarity Clear Urine pH 5.0 pH (4.8-9.5) Urine Specific [place] 1.014 Urine Protein Negative mg/dL (NEGATIVE) Urine Glucose (UA) Negative mg/dL (NEGATIVE) Urine Ketones 20 mg/dL (NEGATIVE) Urine Blood Small (NEGATIVE) Urine Nitrite Negative (NEGATIVE) Urine Bilirubin Negative (NEGATIVE) Urine Urobilinogen 4.0 mg/dL (0.2-1.9) Urine Leukocyte Esterase Negative (NEGATIVE) Urine RBC 13 /HPF (0-2/HPF) Urine WBC <1 /HPF (0-5/HPF) Urine Squamous Epithelial Cells None /LPF (NONE-FEW) Urine Bacteria Negative /HPF (NONE-FEW) Urine Hyaline Casts Many /LPF (NONE-FEW) Urine Mucus None /HPF (NONE-FEW) Urine Opiates Screen Negative Urine Barbiturates Screen Negative Ur Tricyclic Antidepressants Screen Negative Urine Phencyclidine Screen Negative Urine Amphetamines Screen Negative Urine Benzodiazepines Screen Negative Urine Cocaine Screen Negative Urine Cannabinoids Screen Negative Chemistry Test 12/01/17 17:45 12/01/17 18:40 12/01/17 20:13 White Blood Count 7.7 k/uL (4.5-11.0) Red Blood Count 4.30 M/uL (4.00-5.60) Hemoglobin 15.8 g/dL (14.0-18.0) Hematocrit 47.5 % (42.0-52.0) Mean Corpuscular Volume 110.6 fL (80.0-96.0) Mean Corpuscular Hemoglobin 36.6 pg (26.0-33.0) Mean Corpuscular Hemoglobin Concent 33.1 g/dL (32.0-36.0) Red Cell Distribution Width 15.0 % (11.5-14.5) Platelet Count 199 K/uL (150-450) Mean Platelet Volume 9.2 fL (7.2-11.1) Neutrophils (%) (Auto) 74.1 % (39.4-72.5) Lymphocytes (%) (Auto) 17.8 % (17.6-49.6) Monocytes (%) (Auto) 7.4 % (4.1-12.4) Eosinophils (%) (Auto) 0.4 % (0.4-6.7) Basophils (%) (Auto) 0.3 % (0.3-1.4) Nucleated RBC Relative Count (auto) 0.1 /100WBC Neutrophils # (Auto) 5.7 K/uL (2.0-7.4) Lymphocytes # (Auto) 1.4 K/uL (1.3-3.6) Monocytes # (Auto) 0.6 K/uL (0.3-1.0) Eosinophils # (Auto) 0.0 K/uL (0.0-0.5) Basophils # (Auto) 0.0 K/uL (0.0-0.1) Nucleated RBC Absolute Count (auto) 0.01 K/uL Peripheral Blood Smear Yes Y/N Glomerular Filtration Rate Calc 54.6 Lactate 11.7 mmol/L (0.7-2.1) Calcium Level 9.0 mg/dl (8.4-10.2) Total Bilirubin 0.8 mg/dl (0.2-1.3) Aspartate Amino Transf (AST/SGOT) 291 U/L (0-35) Alanine Aminotransferase (ALT/SGPT) 160 U/L (0-56) Alkaline Phosphatase 153 U/L (0-126) Troponin I 0.013 ng/ml C-Reactive Protein < 0.5 mg/dl (<1.0) Total Protein 7.4 g/dl (6.3-8.2) Albumin 4.1 g/dl (3.5-5.0) Lipase 56 U/L (23-300) Serum Alcohol 293 mg/dl Acetone, Qualitative Negative Blood Gas Puncture Site Right radial Blood Gas Patient Temperature 97.5 DEGREES Arterial Blood pH 7.03 (7.35-7.45) Arterial Blood Partial Pressure CO2 < 25 mmHg (32-37) Arterial Blood Partial Pressure O2 82 mmHg (60-80) Arterial Blood HCO3 5 mmol/L (20-26) Arterial Blood Oxygen Saturation 21 % (92-100) Arterial Blood Base Excess -26.0 mmol/L Yong Test Acceptable Oxygen Liters/Minute Room air Urine Color Yellow Urine Clarity Clear Urine pH 5.0 pH (4.8-9.5) Urine Specific [place] 1.014 Urine Protein Negative mg/dL (NEGATIVE) Urine Glucose (UA) Negative mg/dL (NEGATIVE) Urine Ketones 20 mg/dL (NEGATIVE) Urine Blood Small (NEGATIVE) Urine Nitrite Negative (NEGATIVE) Urine Bilirubin Negative (NEGATIVE) Urine Urobilinogen 4.0 mg/dL (0.2-1.9) Urine Leukocyte Esterase Negative (NEGATIVE) Urine RBC 13 /HPF (0-2/HPF) Urine WBC <1 /HPF (0-5/HPF) Urine Squamous Epithelial Cells None /LPF (NONE-FEW) Urine Bacteria Negative /HPF (NONE-FEW) Urine Hyaline Casts Many /LPF (NONE-FEW) Urine Mucus None /HPF (NONE-FEW) Urine Opiates Screen Negative Urine Barbiturates Screen Negative Ur Tricyclic Antidepressants Screen Negative Urine Phencyclidine Screen Negative Urine Amphetamines Screen Negative Urine Benzodiazepines Screen Negative Urine Cocaine Screen Negative Urine Cannabinoids Screen Negative Toxicology Test 12/01/17 17:45 12/01/17 20:13 Serum Alcohol 293 mg/dl Acetone, Qualitative Negative Urine Opiates Screen Negative Urine Barbiturates Screen Negative Ur Tricyclic Antidepressants Screen Negative Urine Phencyclidine Screen Negative Urine Amphetamines Screen Negative Urine Benzodiazepines Screen Negative Urine Cocaine Screen Negative Urine Cannabinoids Screen Negative Urinalysis Test 12/01/17 20:13 Urine Color Yellow Urine Clarity Clear Urine pH 5.0 pH (4.8-9.5) Urine Specific [place] 1.014 Urine Protein Negative mg/dL (NEGATIVE) Urine Glucose (UA) Negative mg/dL (NEGATIVE) Urine Ketones 20 mg/dL (NEGATIVE) Urine Blood Small (NEGATIVE) Urine Nitrite Negative (NEGATIVE) Urine Bilirubin Negative (NEGATIVE) Urine Urobilinogen 4.0 mg/dL (0.2-1.9) Urine Leukocyte Esterase Negative (NEGATIVE) Urine RBC 13 /HPF (0-2/HPF) Urine WBC <1 /HPF (0-5/HPF) Urine Squamous Epithelial Cells None /LPF (NONE-FEW) Urine Bacteria Negative /HPF (NONE-FEW) Urine Hyaline Casts Many /LPF (NONE-FEW) Urine Mucus None /HPF (NONE-FEW) EKG/Imaging EKG Interpretation 12 lead EK Rhythm: Sinus tachycardia, rate 109 premature ventricular complexes noted [place]: normal QRS: normal ST segments: normal, comparison to previous EKG dated 05/14/16 left bundle branch block Imaging X-ray: Single view portable chest x-ray was obtained. I viewed the images myself on the PACS system. My interpretation of the images is: Clear lung epperson, blunting of the left costophrenic angle, comparison to previous film dated 05/14/16, no significant change. The radiologist interpretation had no clinically significant variation from this interpretation. ED Course/Re-evaluation Clinical Indication for ER IV: Hydration, IV Access ED Course Patient was admitted to an examination room. H&P was done. The dental diagnoses was considered. Patient with gross hypotension and tachycardia. He is afebrile. He has no infectious symptoms. On physical examination or history. Patient has 2 peripheral IVs established. Aggressive fluid resuscitation is initiated. Diagnostic studies return. A normal white blood cell count of 77. H&H are stable. A lactate returns at 11.7. ABG is performed which shows a pH of 7.01. EKG shows sinus tachycardia without ischemic changes. Previous EKG was a left bundle branch block. Patient is drummond cultured. Chest x-ray is clear lung epperson. Compared to previous chest x-ray. Patient's blood alcohol returns at 293. Patient's administered Zosyn 3.375 g IV. 12/01/2017 7:21:26 pm case discussed with Dr. Raúl Tejada hospitalist on- call, who advises admission to ICU. Unfortunately, we have no bed availability for ICU. Patient's at this time. Will talk to patient about considering transfer. Spoke with patient and he is reluctant to be transferred. He will sign out AMA and go home. 12/01/2017 8:33:12 pm case was discussed with Dr. Foley hospitalist at [facility] who accepts the patient for transfer. Her facility's ICU. Decision to Disposition Date: Dec 01, 2017 Decision to Disposition Time: 18:36 Critical Care Time I spent a total of 90 minutes of critical care time in obtaining history, performing a physical exam, bedside monitoring of interventions, collecting and interpreting tests and discussion with consultants but not including time spent performing procedures. Depart Departure Latest Vital Signs Vital Signs Date Time Temp Pulse Resp B/P (MAP) Pulse Ox O2 Delivery O2 Flow Rate FiO2 12/01/17 21:15 105/56 (72) 12/01/17 21:05 112 16 94 Room Air 12/01/17 17:49 97.5 Impression: Primary Impression: DM2 (diabetes mellitus, type 2) Additional Impressions: Hx of esophagectomy History of esophageal cancer Hypotension Elevated LDH Sepsis Condition: Improved Disposition: XFER TO [facility] Problem Qualifiers Primary Impression: DM2 (diabetes mellitus, type 2) Diabetes mellitus fpc insulin use: with fpc use Diabetes mellitus complication status: without complication Qualified Codes: E11.9 - Type 2 diabetes mellitus without complications; Z79.4 - penitentiary (current) use of insulin Additional Impressions: Hypotension Hypotension type: unspecified hypotension type Qualified Codes: I95.9 - Hypotension, unspecified Sepsis Sepsis type: sepsis due to unspecified organism Qualified Codes: A41.9 - Sepsis, unspecified organism BETO THRASHER DO Dec 01, 2017 18:07
[2017-12-01 18:16] LABS: PLATELET COUNT, AUTOMATED 199 K/uL (150-450)
--- NOTE | 2017-12-01 18:38 | EKG ---
FACILITY: [facility] - [place] PATIENT NAME: KANIKA MAJANO : [id number] MR: [id number] V: [id number] EXAM DATE: ORDERING PHYSICIAN: BETO THRASHER TECHNOLOGIST: Test Reason : weakness Blood Pressure : / mmHG Vent. Rate : 109 BPM Atrial Rate : 109 BPM P-R Int : 186 ms QRS Dur : 086 ms QT Int : 326 ms P-R-T Axes : 062 056 -21 degrees QTc Int : 439 ms Sinus tachycardia with occasional premature ventricular complexes Nonspecific T wave abnormality Abnormal ECG When compared with ECG of 14-MAY-2016 08:17, Left bundle branch block is no longer present Confirmed by ANSHU GARZA ([id number]) on 12/02/2017 7:45:19 AM Referred By: Confirmed By:ANSHU GARZA
--- NOTE | 2017-12-01 18:48 | RADIOLOGY IMAGING REPORT ---
FACILITY: [facility] - [place], [place] PATIENT NAME: Renard Rai : 1945 MR: [id number] V: [id number] EXAM DATE: ORDERING PHYSICIAN: BETO THRASHER TECHNOLOGIST: Location: [facility] Patient: Renard Rai : 1945 Visit/Account:[id number] Date of Sevice: 12/01/2017 EXAMINATION: Portable chest radiograph single view at 6:08 PM HISTORY: Fever. COMPARISON: 08/26/2017. FINDINGS: A single portable AP view of the chest is obtained. Lines/tubes: Surgical clips in the upper abdomen and at the left lung base. Lungs/pleura: Mild streaky opacity at the left lung base. Chronic contour abnormality of the left he midiaphragm. No evidence of pneumothorax or pleural effusion. Pulmonary vascularity is within normal limits. Heart: Stable normal heart size. Mediastinum: Stable mediastinal contours. Bony structures/body wall: Negative. IMPRESSION: Mild streaky opacity at the left lung base. This could represent atelectasis or an infiltrate. Report Dictated By: Emerson Duran MD at 12/01/2017 6:40 PM Report E-Signed By: Emerson Duran MD at 12/01/2017 6:45 PM WSN:[id number]
[2017-12-01] MEDS: LR(*) 1000 ML BAG 1,000 ML IV PRN ×2 (19:29→20:16)
[2017-12-01] MEDS ORDERED: PIPERACILLIN/TAZO*3.375GM VIAL 3.375 GM in NS(*) 0.9% 100 ML ADDVANT BAG 100 ML IVPB ONE (20:15)
[2017-12-01 21:15] VITALS: BP 105/56
== END 2017-12-01 21:30 | disposition short-term general hospital (02) ==
LOC: ER 18:45
DX: I95.9 Hypotension, unspecified (principal); A41.9 Sepsis, unspecified organism; E11.9 Type 2 diabetes mellitus without complications; Z79.4 Long term (current) use of insulin; R79.89 Other specified abnormal findings of blood chemistry; Z85.01 Personal history of malignant neoplasm of esophagus; F10.20 Alcohol dependence, uncomplicated
CPT/HCPCS: 36415; 71045; 80305; 81001; 82009; 82803; 83605; 83690; 84484; 85025; 86140; 87040; 87088; 93005; 96361; 96365; 99291; 99292; G0480; J2543; J7030; J7050; J7120; 80320; 82040; 82247; 82310; 82374; 82435; 82565; 82947; 84075; 84132; 84155; 84295; 84450; 84460; 84520

== ENCOUNTER → 2017-12-01 | Outpatient (CLI) | payer MEDICARE ==
[2016-05-14 11:11] VITALS: BMI 21.5
[~2017-12-01] MED LIST changes: +GABA-549 PO; -METF-411 PO; +METF-450 PO; +MULT-40; +TAMS0.4C70 PO
== END ==
LOC: AMB 21:13
PROVIDERS: ATTEND Nurse Practitioner
DX: A41.9 Sepsis, unspecified organism (principal)
CPT/HCPCS: A0425; A0428

== ENCOUNTER 2018-02-14 08:30 | Emergency (ER) | payer MEDICARE ==
[2016-05-14 11:11] VITALS: Wt 63.5 kg
[~2018-02-14 08:30] MED LIST changes: +GABA-549 PO; +MULT-40; +TAMS0.4C70 PO
--- NOTE | 2018-02-14 08:49 | ER Report ---
History and Physical Time Seen By MD: 08:43 Hx. of Stated Complaint: c/o chest pressure/ pain 3-4 days, c/o pain radiating to left scapula HPI/ROS CHIEF COMPLAINT: chest pain HISTORY OF PRESENT ILLNESS: This is a 73 year old male. He has been having chest pain for the last 3-4 days. Central chest to the left side, radiating to his back. No pain with walking or exertion. No pain with deep breaths. No shortness of breath. No history of heart problems. He does have type 2 diabetes, but no hypertension or heart failure. He has a history of esophageal cancer with removal of the esophagus. He has no history of ulcers. He does drink heavily, about a gallon on alcohol in 3 days. No recent illness, fever or cough. Has had some emesis, blood tinged. No diarrhea or bowel problems. No trouble with urination. Allergies: Coded Allergies: No Known Drug Allergies (Verified , 02/14/18) Home Meds Active Scripts Insulin Lispro 100 Un/Ml Vial (HUMALOG 100 U/ML VIAL) 100 Unit/1 Ml Vial, 2-10 UNIT SUBQ SS PRN for SLIDING SCALE INSULIN, #1 VIAL 1 Refill Prov:LISHA MCDUFFIE MD 05/17/16 Reported Medications Insulin Aspart 100 Un/Ml Pen (NOVOLOG FLEXPEN) 100 Unit/1 Ml Insuln.pen, 100 UNIT SQ, ML 02/14/18 Fluoxetine Hcl (FLUOXETINE HCL) 20 Mg Capsule, 20 MG PO QDAY, CAPSULE 02/14/18 Thiamine Hcl (VITAMIN B-1) 250 Mg Tablet, 250 MG PO QDAY 02/14/18 Potassium Chloride (POTASSIUM CHLORIDE) 10 Meq Tab.er.prt, 20 MEQ PO QDAY 02/14/18 Multivit-Min/Iron Fum/Folic AC (Volcg-Cptahkb-Imrxnlid Tablet) 7.5 Mg Iron-400 Mcg Tablet, DAILY 12/01/17 Tamsulosin Hcl (TAMSULOSIN HCL) 0.4 Mg Cap.er.24h, 0.4 MG PO QDAY, CAP 12/01/17 Discontinued Reported Medications Aspirin (ASPIR 81) 81 Mg Tablet.dr, 81 MG PO QDAY, TAB 12/01/17 Lipase/Protease/Amylase (CREON 6,000 UNITS CAPSULE) 1 Each Capsule.dr, 1 EACH PO 2-4XD for Nausea 12/01/17 Gabapentin (GABAPENTIN) 300 Mg Capsule, 300 MG PO BID, CAPSULE 12/01/17 Metformin Hcl (METFORMIN HCL) 500 Mg Tablet, PO BID, TAB 08/24/17 Reviewed Nurses Notes: Yes Hx Smoking: Yes Smoking Status: Never Smoker, Former Smoker Hx Substance Use Disorder: Yes Hx Alcohol Use: Yes (Last drink 11/2017, states drank 0.5 gallon a day) Constitutional Vital Sign - Last 24 Hours 02/14/18 02/14/18 02/14/18 02/14/18 08:34 08:37 09:00 09:30 Temp 98.4 Pulse 94 79 86 Resp 16 B/P (MAP) 137/83 137/83 (101) Pulse Ox 94 97 94 O2 Delivery Room Air 02/14/18 02/14/18 02/14/18 10:00 10:11 10:39 Pulse 79 104 Resp 18 14 B/P (MAP) 118/75 (89) Pulse Ox 91 95 O2 Delivery Nasal Cannula O2 Flow Rate 1.0 1 Physical Exam General Appearance: The patient is alert. No acute distress. Non-toxic in appearance. Eyes: Pupils are equal, round. No pallor, injection or icterus. ENT: Mucous membranes are moist. Neck: Supple and non tender. No lymphadenopathy. Respiratory: Lungs are clear to auscultation. Cardiovascular: Regular rate and rhythm. No murmurs, gallops or rubs. Normal capillary refill. Gastrointestinal: Abdomen is soft and non tender. Nondistended. Normal active bowel sounds. Neurological: Alert and oriented x3. No focal neurologic deficits Skin: Warm and dry. Musculoskeletal: Extremities are nontender. DIFFERENTIAL DIAGNOSIS: After history and physical exam, differential diagnosis was considered for chest pain including but not limited to myocardial ischemia, pulmonary embolus, chest wall pain, pleural inflammation, gastrointestinal causes and pulmonary infectious causes. Medical Decision Making Data Points Result Diagram: 02/14/18 0842 02/14/18 0842 Laboratory Hematology Test 02/14/18 08:42 Red Blood Count 4.83 M/uL (4.00-5.60) Mean Corpuscular Volume 98.9 fL (80.0-96.0) Mean Corpuscular Hemoglobin 33.0 pg (26.0-33.0) Mean Corpuscular Hemoglobin Concent 33.3 g/dL (32.0-36.0) Red Cell Distribution Width 14.5 % (11.5-14.5) Mean Platelet Volume 8.9 fL (7.2-11.1) Neutrophils (%) (Auto) 50.5 % (39.4-72.5) Lymphocytes (%) (Auto) 41.3 % (17.6-49.6) Monocytes (%) (Auto) 5.4 % (4.1-12.4) Eosinophils (%) (Auto) 1.6 % (0.4-6.7) Basophils (%) (Auto) 1.2 % (0.3-1.4) Nucleated RBC Relative Count (auto) 0.1 /100WBC Neutrophils # (Auto) 4.4 K/uL (2.0-7.4) Lymphocytes # (Auto) 3.6 K/uL (1.3-3.6) Monocytes # (Auto) 0.5 K/uL (0.3-1.0) Eosinophils # (Auto) 0.1 K/uL (0.0-0.5) Basophils # (Auto) 0.1 K/uL (0.0-0.1) Nucleated RBC Absolute Count (auto) 0.01 K/uL D-Dimer Quantitative (PE/DVT) 2.46 ug/ml (0-0.50) Sodium Level 142 mmol/L (137-145) Potassium Level 4.4 mmol/L (3.5-5.0) Chloride Level 103 mmol/L (98-107) Carbon Dioxide Level 21 mmol/L (22-30) Blood Urea Nitrogen 7 mg/dl (9-21) Creatinine 1.00 mg/dl (0.66-1.25) Glomerular Filtration Rate Calc > 60.0 Random Glucose 106 mg/dl (75-110) Calcium Level 9.3 mg/dl (8.4-10.2) Total Bilirubin 0.8 mg/dl (0.2-1.3) Aspartate Amino Transf (AST/SGOT) 96 U/L (0-35) Alanine Aminotransferase (ALT/SGPT) 54 U/L (0-56) Alkaline Phosphatase 212 U/L (0-126) Troponin I 0.013 ng/ml Total Protein 8.2 g/dl (6.3-8.2) Albumin 4.0 g/dl (3.5-5.0) Chemistry Test 02/14/18 08:42 White Blood Count 8.8 k/uL (4.5-11.0) Red Blood Count 4.83 M/uL (4.00-5.60) Hemoglobin 15.9 g/dL (14.0-18.0) Hematocrit 47.8 % (42.0-52.0) Mean Corpuscular Volume 98.9 fL (80.0-96.0) Mean Corpuscular Hemoglobin 33.0 pg (26.0-33.0) Mean Corpuscular Hemoglobin Concent 33.3 g/dL (32.0-36.0) Red Cell Distribution Width 14.5 % (11.5-14.5) Platelet Count 214 K/uL (150-450) Mean Platelet Volume 8.9 fL (7.2-11.1) Neutrophils (%) (Auto) 50.5 % (39.4-72.5) Lymphocytes (%) (Auto) 41.3 % (17.6-49.6) Monocytes (%) (Auto) 5.4 % (4.1-12.4) Eosinophils (%) (Auto) 1.6 % (0.4-6.7) Basophils (%) (Auto) 1.2 % (0.3-1.4) Nucleated RBC Relative Count (auto) 0.1 /100WBC Neutrophils # (Auto) 4.4 K/uL (2.0-7.4) Lymphocytes # (Auto) 3.6 K/uL (1.3-3.6) Monocytes # (Auto) 0.5 K/uL (0.3-1.0) Eosinophils # (Auto) 0.1 K/uL (0.0-0.5) Basophils # (Auto) 0.1 K/uL (0.0-0.1) Nucleated RBC Absolute Count (auto) 0.01 K/uL D-Dimer Quantitative (PE/DVT) 2.46 ug/ml (0-0.50) Glomerular Filtration Rate Calc > 60.0 Calcium Level 9.3 mg/dl (8.4-10.2) Total Bilirubin 0.8 mg/dl (0.2-1.3) Aspartate Amino Transf (AST/SGOT) 96 U/L (0-35) Alanine Aminotransferase (ALT/SGPT) 54 U/L (0-56) Alkaline Phosphatase 212 U/L (0-126) Troponin I 0.013 ng/ml Total Protein 8.2 g/dl (6.3-8.2) Albumin 4.0 g/dl (3.5-5.0) Coagulation Test 02/14/18 08:42 D-Dimer Quantitative (PE/DVT) 2.46 ug/ml EKG/Imaging EKG Interpretation 12 lead EKG: Rhythm: sinus rhythm with PVC, rate 91 Sheldon: normal QRS: normal ST segments: no signs of ischemia. Imaging Indication: Chest pain. Comparison study: December 01, 2017 Technique: Single AP view of the chest demonstrates the presence of density at the left base. This is unchanged as compared to the previous study. Infiltrate. There is no evidence of pleural effusion or pneumothorax. There is no evidence of acute infiltrate IMPRESSION: No change from the previous study. There is no evidence of acute cardiopulmonary abnormality. Report Dictated By: Baltazar Mathias at 02/14/2018 9:44 AM CTA CHEST WW/O CNTR (PULM ANG) HISTORY: chest pain, elevated d-dimer TECHNIQUE: CTA chest with intravenous contrast attention to pulmonary arteries. Sagittal, coronal and slab 3D MIP coronal reconstructed images were also created for further evaluation and interpretation. One of the following dose optimization techniques was utilized in the perfo rmance of this exam: Automated exposure control; adjustment of the mA and/or kV according to the patient's size; or use of an iterative reconstruction technique. Specific details can be referenced in the facility's radiology CT exam operational policy. CONTRAST: 75 mL Isovue-370. COMPARISON: None. FINDINGS: Heart/vessels: Satisfactory opacification of the pulmonary arteries without vis ualized pulmonary embolus. No is moderate calcifications within the coronary arteries. Mild atherosclerosis within the thoracic aorta. Mediastinum: Postoperative changes from esophagectomy with gastric pull- through. No gross postoperative complication. Lymph nodes: Negative. Lungs/pleura: Left-sided diaphragmatic hernia containing fat, vessels, and bowel, likely surgical in etiology. Mild passive atelectasis within the left lower lobe. Mild emphysematous changes. No pulmonary nodules, infiltrate, or consolidation. Visualized upper abdomen: Advanced hepatic steatosis. Gallbladder surgically absent. Bones/soft tissues: No acute or concerning osseous abnormality. There are multiple subacute healing fractures of the left lower ribs. Mild bilateral gynecomastia. IMPRESSION: 1. No acute findings. Negative for pulmonary embolus. 2. Incidental/chronic findings, as above. Report Dictated By: Krzysztof Stephens MD at 02/14/2018 10:21 AM ED Course/Re-evaluation Clinical Indication for ER IV: IV Access ED Course Negative labs, EKG and imaging other than D-dimer with negative CTA chest. GI cocktail helped a little. Suspect gastritis, and recommended Zantac or Omeprazole. Patient has old prescription for Omeprazole which he will try. Decision to Disposition Date: Feb 14, 2018 Decision to Disposition Time: 11:00 Depart Departure Latest Vital Signs Vital Signs Date Time Temp Pulse Resp B/P (MAP) Pulse Ox O2 Delivery O2 Flow Rate FiO2 02/14/18 10:39 104 14 118/75 (89) 95 Nasal Cannula 1 02/14/18 08:34 98.4 Impression: Primary Impression: Chest pain Condition: Improved Disposition: HOME OR SELF-CARE Patient Instructions: Chest Pain (ED) Additional Instructions: We think that this pain is most likely from you your stomach with gastritis. Rec ommend trial of Zantac 150mg twice a day, or you can take Omeprazole 20mg twice a day. There is no sign of pneumonia, heart attack or blood clots. Follow-up with your regular doctor for re-evaluation in the next 7-10 days. Problem Qualifiers Primary Impression: Chest pain Chest pain type: unspecified Qualified Codes: R07.9 - Chest pain, unspecified MONTSERRAT OWUSU MD Feb 14, 2018 08:49
[2018-02-14] MEDS ORDERED: ASPIRIN 81 MG CHEW PO ONE (08:50)
[2018-02-14] MEDS ORDERED: MORPHINE 4 MG/ML SDV IVP ONE (08:50)
--- NOTE | 2018-02-14 08:52 | EKG ---
FACILITY: [facility] PATIENT NAME: KANIKA MAJANO : [id number] MR: [id number] V: [id number] EXAM DATE: ORDERING PHYSICIAN: MONTSERRAT OWUSU TECHNOLOGIST: ELIZABETH Root Reason : CP Blood Pressure : / mmHG Vent. Rate : 091 BPM Atrial Rate : 091 BPM P-R Int : 152 ms QRS Dur : 068 ms QT Int : 354 ms P-R-T Axes : 070 069 078 degrees QTc Int : 435 ms Sinus rhythm with occasional and consecutive premature ventricular complexes and premature atrial com plexes Abnormal ECG Confirmed by ADELA BECKHAM ([id number]) on 02/14/2018 5:22:46 PM Referred By: Confirmed By:ADELA BECKHAM
[2018-02-14 08:56] LABS: PLATELET COUNT, AUTOMATED 214 K/uL (150-450)
[2018-02-14] MEDS ORDERED: FLUO-177 PO (09:07)
[2018-02-14] MEDS ORDERED: POTA-53 PO (09:07)
[2018-02-14] MEDS ORDERED: THIA250T12 PO (09:07)
[2018-02-14] MEDS ORDERED: INSU100I35 SQ (09:38)
[2018-02-14] MEDS ORDERED: NS(*) 0.9% 50 ML BAG 50 ML ONE (09:46)
[2018-02-14] MEDS ORDERED: IOPAMIDOL 76% 50 ML INFUS BTL 0 ML ONE (09:46)
[2018-02-14] MEDS ORDERED: IOPAMIDOL 76% 75 ML INFUS BTL 75 ML ONE (09:49)
--- NOTE | 2018-02-14 09:50 | RADIOLOGY IMAGING REPORT ---
FACILITY: [facility] - [place] PATIENT NAME: Reanrd Rai : 1945 MR: [id number] V: [id number] EXAM DATE: ORDERING PHYSICIAN: MONTSERRAT OWUSU TECHNOLOGIST: Location: [facility] Patient: Renard Rai : 1945 Visit/Account:[id number] Date of Sevice: 02/14/2018 Study: Single portable view of the chest. Indication: Chest pain. Comparison study: December 01, 2017 Technique: Single AP view of the chest demonstrates the presence of density at the left base. This is unchanged as compared to the previous study. Infiltrate. There is no evidence of pleural effusion or pneumothorax. There is no evidence of acute infiltrate IMPRESSION: No change from the previous study. There is no evidence of acute cardiopulmonary abnormal ity. Report Dictated By: Baltazar Mathias at 02/14/2018 9:44 AM Report E-Signed By: Baltazar Mathias at 02/14/2018 9:46 AM WSN:[id number]
--- NOTE | 2018-02-14 10:33 | RADIOLOGY IMAGING REPORT ---
[place] [facility] [place] Renard Ria : 1945 MR: [id number] V: [id number] EXAM DATE: ORDERING PHYSICIAN: MONTSERRAT OWUSU TECHNOLOGIST: Location: [facility] - [place], [place] Patient: Renard Rai : 1945 Visit/Account:[id number] Date of Sevice: 02/14/2018 CTA CHEST WW/O CNTR (PULM ANG) HISTORY: chest pain, elevated d-dimer TECHNIQUE: CTA chest with intravenous contrast attention to pulmonary arteries. Sagittal, coronal a nd slab 3D MIP coronal reconstructed images were also created for further evaluation and interpretati on. One of the following dose optimization techniques was utilized in the performance of this exam: Autom ated exposure control; adjustment of the mA and/or kV according to the patient's size; or use of an i terative reconstruction technique. Specific details can be referenced in the facility's radiology CT exam operational policy. CONTRAST: 75 mL Isovue-370. COMPARISON: None. FINDINGS: Heart/vessels: Satisfactory opacification of the pulmonary arteries without visualized pulmonary emb olus. No is moderate calcifications within the coronary arteries. Mild atherosclerosis within the tho racic aorta. Mediastinum: Postoperative changes from esophagectomy with gastric pull-through. No gross postoperat sanjana complication. Lymph nodes: Negative. Lungs/pleura: Left-sided diaphragmatic hernia containing fat, vessels, and bowel, likely surgical in etiology. Mild passive atelectasis within the left lower lobe. Mild emphysematous changes. No pulmon marisel nodules, infiltrate, or consolidation. Visualized upper abdomen: Advanced hepatic steatosis. Gallbladder surgically absent. Bones/soft tissues: No acute or concerning osseous abnormality. There are multiple subacute healing fractures of the left lower ribs. Mild bilateral gynecomastia. IMPRESSION: 1. No acute findings. Negative for pulmonary embolus. 2. Incidental/chronic findings, as above. Report Dictated By: Krzysztof Stephens MD at 02/14/2018 10:21 AM Report E-Signed By: Krzysztof Stephens MD at 02/14/2018 10:28 AM WSN:[id number]
[2018-02-14] MEDS ORDERED: ATRO/SCOPOL/HYOSCY/PB 5 ML ELX PO ONE (10:45)
[2018-02-14] MEDS ORDERED: LIDOCAINE 2% VISC SLN 15ML UDC PO ONE (10:45)
[2018-02-14] MEDS ORDERED: MAG HYD/AL HYD/SIMETH 30ML UDC PO ONE (10:45)
[2018-02-14 11:13] VITALS: BP 107/73
== END 2018-02-14 11:32 | disposition home or self-care (01) ==
LOC: ER 08:39
DX: R07.9 Chest pain, unspecified (principal)
CPT/HCPCS: 71045; 71275; 84484; 85025; 85379; 93005; 96374; 99284; A9270; J2270; J7050; Q9967; 82040; 82247; 82310; 82374; 82435; 82565; 82947; 84075; 84132; 84155; 84295; 84450; 84460; 84520

== ENCOUNTER 2018-04-23 09:08 | Emergency (ER) | payer MEDICARE ==
[2016-05-14 11:11] VITALS: Wt 63.5 kg
[~2018-04-23 09:08] MED LIST changes: +FLUO-177 PO; +INSU100I35 SQ; +POTA-53 PO; +THIA250T12 PO
[2018-04-23] MEDS ORDERED: NS(*) 0.9% 1000 ML BAG 1,000 ML IV ONE ×2 (09:09→10:45)
[2018-04-23] MEDS ORDERED: ONDANSETRON 4 MG/2 ML VIAL IVP ONE (09:10)
--- NOTE | 2018-04-23 09:22 | EKG ---
[place] [facility] [place] NAME: KANIKA MAJANO : [id number] MR: [id number] V: [id number] EXAM DATE: ORDERING PHYSICIAN: MARIANA WALSH TECHNOLOGIST: ELIZABETH Root Reason : NEURO Blood Pressure : / mmHG Vent. Rate : 097 BPM Atrial Rate : 097 BPM P-R Int : 100 ms QRS Dur : 126 ms QT Int : 380 ms P-R-T Axes : 071 061 124 degrees QTc Int : 482 ms Sinus rhythm with short [place] Left bundle branch block ST findings consistent with LBBB Abnormal ECG Confirmed by LISHA MCDUFFIE ([id number]) on 04/23/2018 4:32:27 PM Referred By: JILLIAN Confirmed By:LISHA MCDUFFIE
[2018-04-23] MEDS ORDERED: ASPIRIN 81 MG CHEW PO ONE (09:25)
[2018-04-23 09:27] LABS: PLATELET COUNT, AUTOMATED 196 K/uL (150-450)
--- NOTE | 2018-04-23 09:31 | ER Report ---
History and Physical Time Seen By MD: 09:25 Hx. of Stated Complaint: PATIENT REPORTS DIZZINESS FOR 2 WEEKS. WAS IN [place] FOR SEPSIS 2 WEEKS AGO. ALSO HAS BEEN VOMITTING HPI/ROS CHIEF COMPLAINT: Vomiting dizziness doesn't feel well HISTORY OF PRESENT ILLNESS: 73-year-old male history of diabetes insulin- dependent pack smoker approximately 50 years has been having nausea and vomiting persistently last couple days today's notice some worsening associated dizziness denies any chest pain says he doesn't feel right no shortness of breath since his glucose is been in the 380s but on arrival here is in the mid 80s he also said that his A1c has been 6.9 he's been with a sugars has no significant cardiac past medical history denies active chest pressure or pain at this time denies abdominal pain but again is had nausea and persistent vomiting difficulty holding things down patient is no additional complaints at this time REVIEW OF SYSTEMS: Respiratory: No cough, no dyspnea. Cardiovascular: No chest pain, no palpitations. Gastrointestinal: Vomiting no abdominal pain Musculoskeletal: No back pain. Remainder of the 14 system rev: Yes Allergies: Coded Allergies: No Known Drug Allergies (Verified , 02/14/18) Home Meds Active Scripts Insulin Lispro 100 Un/Ml Vial (HUMALOG 100 U/ML VIAL) 100 Unit/1 Ml Vial, 2-10 UNIT SUBQ SS PRN for SLIDING SCALE INSULIN, #1 VIAL 1 Refill Prov:LISHA MCDUFFIE MD 05/17/16 Reported Medications Insulin Aspart 100 Un/Ml Pen (NOVOLOG FLEXPEN) 100 Unit/1 Ml Insuln.pen, 100 UNIT SQ, ML 02/14/18 Fluoxetine Hcl (FLUOXETINE HCL) 20 Mg Capsule, 20 MG PO QDAY, CAPSULE 02/14/18 Thiamine Hcl (VITAMIN B-1) 250 Mg Tablet, 250 MG PO QDAY 02/14/18 Multivit-Min/Iron Fum/Folic AC (Pbiip-Wkenrtd-Phbsoewq Tablet) 7.5 Mg Iron-400 Mcg Tablet, DAILY 12/01/17 Tamsulosin Hcl (TAMSULOSIN HCL) 0.4 Mg Cap.er.24h, 0.4 MG PO QDAY, CAP 12/01/17 Discontinued Reported Medications Potassium Chloride (POTASSIUM CHLORIDE) 10 Meq Tab.er.prt, 20 MEQ PO QDAY 02/14/18 Reviewed Nurses Notes: Yes Old Medical Records Reviewed: Yes Hx Smoking: Yes Smoking Status: Never Smoker, Former Smoker Hx Substance Use Disorder: Yes Hx Alcohol Use: Yes (Last drink 11/2017, states drank 0.5 gallon a day) Constitutional Vital Sign - Last 24 Hours 04/23/18 04/23/18 04/23/18 04/23/18 09:12 09:12 09:13 09:21 Temp 98.6 Pulse 107 Resp 18 B/P (MAP) 126/82 118/102 (107) 126/93 (104) 123/85 (98) Pulse Ox 94 O2 Delivery Room Air 04/23/18 04/23/18 04/23/18 04/23/18 09:22 09:23 09:30 09:45 Pulse 96 104 110 B/P (MAP) 115/81 (92) 128/42 (70) 123/85 (98) 120/83 (95) 115/81 (92) 128/42 (70) 04/23/18 04/23/18 04/23/18 04/23/18 10:08 10:15 10:20 10:25 Pulse 99 95 Resp 18 12 B/P (MAP) 118/78 (91) Pulse Ox 93 97 O2 Flow Rate 2.0 04/23/18 04/23/18 04/23/18 04/23/18 10:30 10:40 10:45 11:00 Pulse ??? 88 Resp 15 B/P (MAP) 126/74 (91) 133/76 (95) 125/76 (92) Pulse Ox 98 04/23/18 04/23/18 04/23/18 04/23/18 11:15 11:20 11:40 12:15 Pulse 85 85 81 Resp 12 B/P (MAP) 119/69 (86) 129/77 (94) Pulse Ox 99 Physical Exam General Appearance: [The patient is alert, has no immediate need for airway protection and no current signs of toxicity.] [ ] Eyes: Pupils equal and round no injection. Respiratory: Chest is non tender, lungs are clear to auscultation. Cardiac: regular rate and rhythm [ ] Gastrointestinal: Abdomen is soft and non tender, no masses, bowel sounds normal. Musculoskeletal: Neck: Neck is supple and non tender. Extremities have full range of motion and are non tender. Skin: No rashes or lesions. [ ] DIFFERENTIAL DIAGNOSIS: After history and physical exam differential diagnosis was considered for uvula bundle branch block acute GA cardiac abnormality unstable anginal equivalent aortic dissection gastroenteritis enteritis vertigo Medical Decision Making Data Points Result Diagram: 04/23/1817 04/23/1817 Laboratory Hematology Test 04/23/18 00:00 04/23/18 09:16 04/23/18 09:17 04/23/18 10:23 Serum Alcohol < 10 mg/dl Whole Blood Glucose 82 mg/DL (75-110) Red Blood Count 4.38 M/uL (4.00-5.60) Mean Corpuscular Volume 100.5 fL (80.0-96.0) Mean Corpuscular Hemoglobin 34.1 pg (26.0-33.0) Mean Corpuscular Hemoglobin Concent 33.9 g/dL (32.0-36.0) Red Cell Distribution Width 15.2 % (11.5-14.5) Mean Platelet Volume 8.9 fL (7.2-11.1) Neutrophils (%) (Auto) 64.0 % (39.4-72.5) Lymphocytes (%) (Auto) 23.1 % (17.6-49.6) Monocytes (%) (Auto) 12.4 % (4.1-12.4) Eosinophils (%) (Auto) 0.0 % (0.4-6.7) Basophils (%) (Auto) 0.5 % (0.3-1.4) Nucleated RBC Relative Count (auto) 0.3 /100WBC Neutrophils # (Auto) 4.2 K/uL (2.0-7.4) Lymphocytes # (Auto) 1.5 K/uL (1.3-3.6) Monocytes # (Auto) 0.8 K/uL (0.3-1.0) Eosinophils # (Auto) 0.0 K/uL (0.0-0.5) Basophils # (Auto) 0.0 K/uL (0.0-0.1) Nucleated RBC Absolute Count (auto) 0.02 K/uL Peripheral Blood Smear Yes Y/N Sodium Level 132 mmol/L (137-145) Potassium Level 3.3 mmol/L (3.5-5.0) Chloride Level 94 mmol/L (98-107) Carbon Dioxide Level 28 mmol/L (22-30) Blood Urea Nitrogen 9 mg/dl (9-21) Creatinine 0.80 mg/dl (0.66-1.25) Glomerular Filtration Rate Calc > 60.0 Random Glucose 70 mg/dl (75-110) Calcium Level 8.7 mg/dl (8.4-10.2) Total Bilirubin 1.7 mg/dl (0.2-1.3) Aspartate Amino Transf (AST/SGOT) 234 U/L (0-35) Alanine Aminotransferase (ALT/SGPT) 87 U/L (0-56) Alkaline Phosphatase 309 U/L (0-126) Total Protein 7.4 g/dl (6.3-8.2) Albumin 3.7 g/dl (3.5-5.0) Lipase 38 U/L (23-300) D-Dimer Quantitative (PE/DVT) 2.47 ug/ml (0-0.50) Test 04/23/18 10:38 04/23/18 12:27 Urine Color Yellow Urine Clarity Clear Urine pH 6.0 pH (4.8-9.5) Urine Specific [place] 1.027 Urine Protein Negative mg/dL (NEGATIVE) Urine Glucose (UA) 50 mg/dL (NEGATIVE) Urine Ketones Trace mg/dL (NEGATIVE) Urine Blood Negative (NEGATIVE) Urine Nitrite Negative (NEGATIVE) Urine Bilirubin Negative (NEGATIVE) Urine Urobilinogen 2.0 mg/dL (0.2-1.9) Urine Leukocyte Esterase Negative (NEGATIVE) Urine RBC <1 /HPF (0-2/HPF) Urine WBC <1 /HPF (0-5/HPF) Urine Squamous Epithelial Cells None /LPF (</=FEW) Urine Bacteria Negative /HPF (NONE-FEW) Urine Mucus None /HPF (NONE-FEW) Troponin I 0.018 ng/ml Chemistry Test 04/23/18 00:00 04/23/18 09:16 04/23/18 09:17 04/23/18 10:23 Serum Alcohol < 10 mg/dl Whole Blood Glucose 82 mg/DL (75-110) White Blood Count 6.6 k/uL (4.5-11.0) Red Blood Count 4.38 M/uL (4.00-5.60) Hemoglobin 14.9 g/dL (14.0-18.0) Hematocrit 44.0 % (42.0-52.0) Mean Corpuscular Volume 100.5 fL (80.0-96.0) Mean Corpuscular Hemoglobin 34.1 pg (26.0-33.0) Mean Corpuscular Hemoglobin Concent 33.9 g/dL (32.0-36.0) Red Cell Distribution Width 15.2 % (11.5-14.5) Platelet Count 196 K/uL (150-450) Mean Platelet Volume 8.9 fL (7.2-11.1) Neutrophils (%) (Auto) 64.0 % (39.4-72.5) Lymphocytes (%) (Auto) 23.1 % (17.6-49.6) Monocytes (%) (Auto) 12.4 % (4.1-12.4) Eosinophils (%) (Auto) 0.0 % (0.4-6.7) Basophils (%) (Auto) 0.5 % (0.3-1.4) Nucleated RBC Relative Count (auto) 0.3 /100WBC Neutrophils # (Auto) 4.2 K/uL (2.0-7.4) Lymphocytes # (Auto) 1.5 K/uL (1.3-3.6) Monocytes # (Auto) 0.8 K/uL (0.3-1.0) Eosinophils # (Auto) 0.0 K/uL (0.0-0.5) Basophils # (Auto) 0.0 K/uL (0.0-0.1) Nucleated RBC Absolute Count (auto) 0.02 K/uL Peripheral Blood Smear Yes Y/N Glomerular Filtration Rate Calc > 60.0 Calcium Level 8.7 mg/dl (8.4-10.2) Total Bilirubin 1.7 mg/dl (0.2-1.3) Aspartate Amino Transf (AST/SGOT) 234 U/L (0-35) Alanine Aminotransferase (ALT/SGPT) 87 U/L (0-56) Alkaline Phosphatase 309 U/L (0-126) Total Protein 7.4 g/dl (6.3-8.2) Albumin 3.7 g/dl (3.5-5.0) Lipase 38 U/L (23-300) D-Dimer Quantitative (PE/DVT) 2.47 ug/ml (0-0.50) Test 04/23/18 10:38 04/23/18 12:27 Urine Color Yellow Urine Clarity Clear Urine pH 6.0 pH (4.8-9.5) Urine Specific [place] 1.027 Urine Protein Negative mg/dL (NEGATIVE) Urine Glucose (UA) 50 mg/dL (NEGATIVE) Urine Ketones Trace mg/dL (NEGATIVE) Urine Blood Negative (NEGATIVE) Urine Nitrite Negative (NEGATIVE) Urine Bilirubin Negative (NEGATIVE) Urine Urobilinogen 2.0 mg/dL (0.2-1.9) Urine Leukocyte Esterase Negative (NEGATIVE) Urine RBC <1 /HPF (0-2/HPF) Urine WBC <1 /HPF (0-5/HPF) Urine Squamous Epithelial Cells None /LPF (</=FEW) Urine Bacteria Negative /HPF (NONE-FEW) Urine Mucus None /HPF (NONE-FEW) Troponin I 0.018 ng/ml Coagulation Test 04/23/18 10:23 D-Dimer Quantitative (PE/DVT) 2.47 ug/ml Toxicology Test 04/23/18 00:00 Serum Alcohol < 10 mg/dl Urinalysis Test 04/23/18 10:38 Urine Color Yellow Urine Clarity Clear Urine pH 6.0 pH (4.8-9.5) Urine Specific [place] 1.027 Urine Protein Negative mg/dL (NEGATIVE) Urine Glucose (UA) 50 mg/dL (NEGATIVE) Urine Ketones Trace mg/dL (NEGATIVE) Urine Blood Negative (NEGATIVE) Urine Nitrite Negative (NEGATIVE) Urine Bilirubin Negative (NEGATIVE) Urine Urobilinogen 2.0 mg/dL (0.2-1.9) Urine Leukocyte Esterase Negative (NEGATIVE) Urine RBC <1 /HPF (0-2/HPF) Urine WBC <1 /HPF (0-5/HPF) Urine Squamous Epithelial Cells None /LPF (</=FEW) Urine Bacteria Negative /HPF (NONE-FEW) Urine Mucus None /HPF (NONE-FEW) ED Course/Re-evaluation ED Course ED course and 3-year-old male came in with a new onset left bundle branch block spoke cardiology over in [place] evidently had episodes similar to this on rhythm strips and no confirmed 12-lead EKG however the inventory associate felt that with negative troponin and serial 3 over the next 3-4 hours daily Toprol to go home because of a long history of alcohol abuse. LFTs did demonstrate consistency with alcohol abuse and alcohol liver toxicity inventory associate felt that this may be contributed factors d-dimer was elevated at 2.4 a scanned his chest abdomen and pelvis with IV contrast showing no PE abdominal CT showed chronic changes but nothing acute LFTs were consistent with alcohol abuse and liver toxicity. He was non-symptomatically was in the emergency department fluids were given antiemetics were given he felt significantly better repeat troponins 3 were all negative. She'll be discharge diagnosis alcohol abuse liver toxicity and gastroenteritis Decision to Disposition Date: Apr 23, 2018 Decision to Disposition Time: 13:12 Depart Departure Latest Vital Signs Vital Signs Date Time Temp Pulse Resp B/P (MAP) Pulse Ox O2 Delivery O2 Flow Rate FiO2 04/23/18 12:15 81 129/77 (94) 04/23/18 11:20 12 99 04/23/18 10:25 2.0 04/23/18 09:12 98.6 Room Air Impression: Primary Impression: Liver disease Condition: Improved Disposition: HOME OR SELF-CARE Referrals: PEDRO PABLO RICHARD MD 5 Days Patient Instructions: Liver Profile (GEN) MARIANA WALSH MD Apr 23, 2018 09:31
--- NOTE | 2018-04-23 10:16 | RADIOLOGY IMAGING REPORT ---
FACILITY: [facility] PATIENT NAME: Renard Rai : 1945 MR: [id number] V: [id number] EXAM DATE: ORDERING PHYSICIAN: MARIANA WALSH TECHNOLOGIST: Location: [facility] - [place] Patient: Renard Rai : 1945 Visit/Account:[id number] Date of Sevice: 04/23/2018 CHEST PA LAT HISTORY: Chest pain. COMPARISON: Chest x-rays are 2017. FINDINGS: Cardiomediastinal contours: The heart size is normal. Lungs and pleura: There are surgical clips in the left lung base, left mediastinum and in the upper a bdomen. There appears to be pleural thickening on the left side. There is no acute infiltrate, lymp hadenopathy or pleural effusion. Bones/soft tissues: There are new displaced fractures involving ribs 6 and 7 on the right side that a ppear new. Subtle deformity of the right 10th rib has the appearance of an old fracture. IMPRESSION: 1. New mildly displaced fractures involving ribs 6 and 7 on the right side. There is no associated pneumothorax or pleural effusion. 2. Old rib fracture involving the right 10th rib. 3. Postoperative changes in the midepigastric region, left mediastinum and left lung base with assoc iated chronic left pleural scarring. Correlation with past surgical history recommended. Report Dictated By: Jose Kelly MD at 04/23/2018 10:09 AM Report E-Signed By: Jose Kelly MD at 04/23/2018 10:12 AM WSN:[id number]
--- NOTE | 2018-04-23 10:32 | RADIOLOGY IMAGING REPORT ---
FACILITY: [facility] PATIENT NAME: Renard Rai : 1945 MR: [id number] V: [id number] EXAM DATE: ORDERING PHYSICIAN: MARIANA WALSH TECHNOLOGIST: Location: [facility] Patient: Renard Rai : 1945 Visit/Account:[id number] Date of Sevice: 04/23/2018 CT ABDOMEN PELVIS W/ CON COMPARISON: 02/14/2018 CTA chest. HISTORY: Vomiting with abnormal labs. TECHNIQUE: Axial CT abdomen and pelvis with intravenous contrast. Coronal and sagittal reformats. O ne of the following dose optimization techniques was utilized in the performance of this exam: autom ated exposure control; adjustment of the mA and/or kV according to patient size; or use of iterative reconstruction technique. Specific details can be referenced in the facility's radiology CT exam ope rational policy. CONTRAST: 75 mL of IV Isovue-370. FINDINGS: LUNG BASES: Large left diaphragmatic hernia containing fat, vessels, gastric pull-up, small bowel an d colon and surgical clips, similar to 02/06/[address] LIVER: Negative. BILIARY: Common duct prominence is within normal limits post cholecystectomy. Comm on duct measures about 10 mm maximally. SPLEEN: Not identified. PANCREAS: Age advanced atrophy, with fatty deposition in the visualized head/neck, body and tail are not definitively identified. No change from previous and no discrete mass identified to account for this. ADRENALS: Negative. KIDNEYS: Too small to characterize probable cysts in the left kidney. Otherwise negative. No hydrone phrosis, evidence of pyelonephritis or appreciable stones. GI/MESENTERY: Left diaphragmatic hernia containing bowel as above. No bowel wall thickening in the a bdomen. Diffuse colonic diverticulosis with moderate diverticulosis of the descending and sigmoid col on. Apparent sigmoid wall thickening without surrounding fat stranding or ascites. This is probably a rtifact of underdistention, low-grade diverticulitis is difficult to exclude. Elsewhere no bowel wall thickening and no evidence of obstruction. No free air or fluid collection. VASCULAR: Moderate vascular calcifications. LYMPH NODES: Numerous prominent but not frankly enlarged retroperitoneal nodes in the abdomen. No si gnificantly enlarged nodes by standard size criteria. BLADDER: Moderate bladder distention with intermediate density urine, probably related to excreted c ontrast from a reported scan yesterday. No bladder wall thickening or mass. PELVIC ORGANS: Mildly enlarged prostate, 5.1 cm transverse. BONES: Moderate lumbar spine degenerative changes. First-degree retrolisthesis at L1-L2, L2-3, L4-5 considered degenerative. Mild hip osteoarthritis bilaterally. OTHER: Negative. IMPRESSION: 1. No definite cause for pain identified. There is colonic diverticulosis with apparent sigmoid wall thickening felt to be artifact of underdistention although a low-grade diverticulitis could have margie hnically have a similar appearance. Otherwise no acute bowel pathology. 2. Large left diaphragmatic hernia containing bowel, without change from previous. 3. Common duct prominence which is within normal limits postcholecystectomy. 4. Prominent but not significantly enlarged intraperitoneal lymph nodes in the abdomen. 5. Enlarged prostate. Report Dictated By: Renard Siegel at 04/23/2018 10:18 AM Report E-Signed By: Renard Siegel at 04/23/2018 10:28 AM WSN:[id number]
--- NOTE | 2018-04-23 12:15 | RADIOLOGY IMAGING REPORT ---
FACILITY: [facility] PATIENT NAME: Renard Rai : 1945 MR: [id number] V: [id number] EXAM DATE: ORDERING PHYSICIAN: MARIANA WALSH TECHNOLOGIST: Location: [facility] - [place] Patient: Renard Rai : 1945 Visit/Account:[id number] Date of Sevice: 04/23/2018 EXAMINATION: CTA Chest With Contrast 04/23/2018 10:57 AM HISTORY: elevated dimer TECHNIQUE: Pulmonary embolus protocol - Thin-slice axial imaging of the chest was performed during maximal pulmonary arterial opacification with intravenous nonionic iodinated contrast. 3D slab MIPs a nd 2D reconstructions in the coronal and sagittal planes were performed. [employer] images have b een stored on PACS. Contrast: 75 mL of IV Isovue 370. One of the following dose optimization techniques was utilized in the performance of this exam: Autom ated exposure control; adjustment of the mA and/or kV according to the patient's size; or use of an i terative reconstruction technique. Specific details can be referenced in the facility's radiology C T exam operational policy. COMPARISON STUDIES: Separate CT abdomen and pelvis today. Chest x-ray today. CTA chest for PE 02/06.. FINDINGS: Angiographic Findings: Pulmonary arteries: There are no filling defects in the main, right, left, lobar, segmental or visual ized sub-segmental branches of the pulmonary arterial system Other vasculature: Atherosclerosis includes coronary disease. Additional non-angiographic findings: Lungs / pleura: Stable scarring in the left base. Stable fat density pleural thickening on the left w ith surgical clips. Mediastinum / zain: Status post esophagectomy with gastric pull-through. Stable herniation through th e medial left hemidiaphragm and the lower mediastinum. No acute finding. Heart / pericardium: negative Musculoskeletal / Body wall: Fractures in the posterolateral right sixth and seventh ribs and subtle periosteal reaction in the posterolateral fifth rib consistent with subacute bony injuries which were not visible in January. Posterior 10th rib fracture on the right is also subacute with periosteal h ealing and is a change from January. Old posterior right 11th rib injury. Also are older lower left rib injuries. Lymph node assessment: negative Lower neck: negative Upper abdomen: CT abdomen today is reported separately. Postsurgical changes from gastric pull-throug h. Prior cholecystectomy. IMPRESSION: 1. Negative CTA evaluation for PE. No significant acute finding in the chest. 2. Stable postsurgical appearance status post esophagectomy with gastric pull-through with postsurgic al herniation in the medial left hemidiaphragm. 3. Subacute and old rib fractures. Some of the right rib injuries are new since January. Report Dictated By: Ayush Phan MD at 04/23/2018 11:59 AM Report E-Signed By: Ayush Phan MD at 04/23/2018 12:10 PM WSN:[id number]
[2018-04-23 13:00] VITALS: BP 122/82
--- NOTE | 2018-04-23 13:02 | EKG ---
FACILITY: [facility] PATIENT NAME: KANIKA MAJANO : [id number] MR: [id number] V: [id number] EXAM DATE: ORDERING PHYSICIAN: MARIANA WALSH TECHNOLOGIST: ELIZABETH Root Reason : REPEAT Blood Pressure : / mmHG Vent. Rate : 099 BPM Atrial Rate : 099 BPM P-R Int : 096 ms QRS Dur : 126 ms QT Int : 402 ms P-R-T Axes : 064 063 211 degrees QTc Int : 515 ms Sinus rhythm with short IL with premature ventricular complexes or fusion complexes Left bundle branch block Abnormal ECG Confirmed by LISHA MCDUFFIE ([id number]) on 04/23/2018 4:35:51 PM Referred By: JILLIAN Confirmed By:LISHA MCDUFFIE
--- NOTE | 2018-04-24 14:55 | EKG ---
FACILITY: [facility] - [place] PATIENT NAME: KANIKA MAJANO : [id number] MR: [id number] V: [id number] EXAM DATE: ORDERING PHYSICIAN: MARIANA WALSH TECHNOLOGIST: ELIZABETH Root Reason : REPEAT Blood Pressure : / mmHG Vent. Rate : 086 BPM Atrial Rate : 086 BPM P-R Int : 122 ms QRS Dur : 126 ms QT Int : 404 ms P-R-T Axes : 059 068 258 degrees QTc Int : 483 ms Normal sinus rhythm Left bundle branch block Abnormal ECG When compared with ECG of 04.23.2018 Confirmed by José Miguel Ruiz ([id number]) on 04/24/2018 10:18:01 PM Referred By: JILLIAN Confirmed By:José Miguel Payne
== END 2018-04-23 13:22 | disposition home or self-care (01) ==
LOC: ER 09:13
DX: K76.9 Liver disease, unspecified (principal); R11.2 Nausea with vomiting, unspecified; R42 Dizziness and giddiness; Z87.891 Personal history of nicotine dependence
CPT/HCPCS: 36416; 71046; 71275; 74177; 81001; 82948; 83690; 84484; 85025; 85379; 93005; 96361; 96374; 99284; A9270; G0480; J2405; J7030; 80320; 82040; 82247; 82310; 82374; 82435; 82565; 82947; 84075; 84132; 84155; 84295; 84450; 84460; 84520; Q9967

== ENCOUNTER 2018-05-17 07:58 | Emergency (ER) | payer MEDICARE ==
[2016-05-14 11:11] VITALS: Wt 63.5 kg
--- NOTE | 2018-05-17 08:01 | ER Report ---
History and Physical Time Seen By MD: 08:01 HPI/ROS CHIEF COMPLAINT: Right-sided ecchymosis HISTORY OF PRESENT ILLNESS: Patient is a 73-year-old male here with complaints of right-sided ecchymosis after falling approximately 10 days ago after tripping over his dog. Patient reports having increased swelling on the right side, right-sided rib pain. Patient does have a history significant for excessive alcohol consumption, liver disease. Patient does take aspirin daily. Denies being on anticoagulants. REVIEW OF SYSTEMS: Constitutional: No fever, no chills. Eyes: No discharge. ENT: No sore throat. Cardiovascular: + Right-sided chest wall pain, no palpitations. Respiratory: No cough, no shortness of breath. Gastrointestinal: No abdominal pain, no vomiting. Genitourinary: No hematuria. Musculoskeletal: No back pain. Skin: + Ecchymosis of the right lateral ribs, right side of the abdomen and the lateral aspect Neurological: No headache. Allergies: Coded Allergies: No Known Drug Allergies (Verified , 05/17/18) Home Meds Active Scripts Insulin Lispro 100 Un/Ml Vial (HUMALOG 100 U/ML VIAL) 100 Unit/1 Ml Vial, 2-10 UNIT SUBQ SS PRN for SLIDING SCALE INSULIN, #1 VIAL 1 Refill Prov:LISHA MCDUFFIE MD 05/17/16 Reported Medications Insulin Aspart 100 Un/Ml Pen (NOVOLOG FLEXPEN) 100 Unit/1 Ml Insuln.pen, 100 UNIT SQ, ML 02/14/18 Fluoxetine Hcl (FLUOXETINE HCL) 20 Mg Capsule, 20 MG PO QDAY, CAPSULE 02/14/18 Thiamine Hcl (VITAMIN B-1) 250 Mg Tablet, 250 MG PO QDAY 02/14/18 Multivit-Min/Iron Fum/Folic AC (Dqxjg-Myihitz-Oilktjjt Tablet) 7.5 Mg Iron-400 Mcg Tablet, DAILY 12/01/17 Tamsulosin Hcl (TAMSULOSIN HCL) 0.4 Mg Cap.er.24h, 0.4 MG PO QDAY, CAP 12/01/17 Hx Smoking: Yes Smoking Status: Never Smoker, Former Smoker Hx Substance Use Disorder: Yes Hx Alcohol Use: Yes (Last drink 11/2017, states drank 0.5 gallon a day) Constitutional Vital Sign - Last 24 Hours 05/17/18 08:02 Temp 98.2 Pulse 90 Resp 20 B/P (MAP) 145/90 Pulse Ox 92 Physical Exam General Appearance: The patient is alert, has no immediate need for airway protection and no signs of toxicity. No acute distress Eyes: Pupils equal and round no pallor or injection. ENT, Mouth: Mucous membranes are moist. Respiratory: There are no retractions, lungs are clear to auscultation.+ Right- sided chest wall pain, ecchymosis and mild edema Cardiovascular: Regular rate and rhythm. Gastrointestinal: Abdomen is + tender on the right lateral aspect, no masses, bowel sounds normal. Neurological: No focal neurological findings Skin: Warm and dry, no rashes. Musculoskeletal: Neck is supple non tender. Extremities are nontender, nonswollen and have full range of motion. DIFFERENTIAL DIAGNOSIS: After history and physical exam differential diagnosis was considered for fracture, contusion, bleeding disorder, coagulation issue, anemia, synthetic liver dysfunction Medical Decision Making Data Points Result Diagram: 05/17/18 0814 05/17/18 0839 Laboratory Hematology Test 05/17/18 08:14 05/17/18 08:39 Red Blood Count 3.47 M/uL (4.00-5.60) Mean Corpuscular Volume 103.9 fL (80.0-96.0) Mean Corpuscular Hemoglobin 35.6 pg (26.0-33.0) Mean Corpuscular Hemoglobin Concent 34.3 g/dL (32.0-36.0) Red Cell Distribution Width 14.8 % (11.5-14.5) Mean Platelet Volume 8.0 fL (7.2-11.1) Neutrophils (%) (Auto) 80.8 % (39.4-72.5) Lymphocytes (%) (Auto) 10.4 % (17.6-49.6) Monocytes (%) (Auto) 5.5 % (4.1-12.4) Eosinophils (%) (Auto) 1.4 % (0.4-6.7) Basophils (%) (Auto) 1.9 % (0.3-1.4) Nucleated RBC Relative Count (auto) 0.2 /100WBC Neutrophils # (Auto) 6.8 K/uL (2.0-7.4) Lymphocytes # (Auto) 0.9 K/uL (1.3-3.6) Monocytes # (Auto) 0.5 K/uL (0.3-1.0) Eosinophils # (Auto) 0.1 K/uL (0.0-0.5) Basophils # (Auto) 0.2 K/uL (0.0-0.1) Nucleated RBC Absolute Count (auto) 0.02 K/uL Peripheral Blood Smear Yes Y/N Prothrombin Time 15.0 seconds (12.0-14.4) Prothromb Time International Ratio 1.17 Activated Partial Thromboplast Time 33 seconds (23-35) Sodium Level 137 mmol/L (137-145) Potassium Level 4.1 mmol/L (3.5-5.0) Chloride Level 104 mmol/L (98-107) Carbon Dioxide Level 24 mmol/L (22-30) Blood Urea Nitrogen 9 mg/dl (9-21) Creatinine 0.70 mg/dl (0.66-1.25) Glomerular Filtration Rate Calc > 60.0 Random Glucose 198 mg/dl (75-110) Calcium Level 8.2 mg/dl (8.4-10.2) Total Bilirubin 0.6 mg/dl (0.2-1.3) Aspartate Amino Transf (AST/SGOT) 70 U/L (0-35) Alanine Aminotransferase (ALT/SGPT) 37 U/L (0-56) Alkaline Phosphatase 252 U/L (0-126) Total Protein 6.4 g/dl (6.3-8.2) Albumin 3.1 g/dl (3.5-5.0) Chemistry Test 05/17/18 08:14 05/17/18 08:39 White Blood Count 8.4 k/uL (4.5-11.0) Red Blood Count 3.47 M/uL (4.00-5.60) Hemoglobin 12.4 g/dL (14.0-18.0) Hematocrit 36.0 % (42.0-52.0) Mean Corpuscular Volume 103.9 fL (80.0-96.0) Mean Corpuscular Hemoglobin 35.6 pg (26.0-33.0) Mean Corpuscular Hemoglobin Concent 34.3 g/dL (32.0-36.0) Red Cell Distribution Width 14.8 % (11.5-14.5) Platelet Count 273 K/uL (150-450) Mean Platelet Volume 8.0 fL (7.2-11.1) Neutrophils (%) (Auto) 80.8 % (39.4-72.5) Lymphocytes (%) (Auto) 10.4 % (17.6-49.6) Monocytes (%) (Auto) 5.5 % (4.1-12.4) Eosinophils (%) (Auto) 1.4 % (0.4-6.7) Basophils (%) (Auto) 1.9 % (0.3-1.4) Nucleated RBC Relative Count (auto) 0.2 /100WBC Neutrophils # (Auto) 6.8 K/uL (2.0-7.4) Lymphocytes # (Auto) 0.9 K/uL (1.3-3.6) Monocytes # (Auto) 0.5 K/uL (0.3-1.0) Eosinophils # (Auto) 0.1 K/uL (0.0-0.5) Basophils # (Auto) 0.2 K/uL (0.0-0.1) Nucleated RBC Absolute Count (auto) 0.02 K/uL Peripheral Blood Smear Yes Y/N Prothrombin Time 15.0 seconds (12.0-14.4) Prothromb Time International Ratio 1.17 Activated Partial Thromboplast Time 33 seconds (23-35) Glomerular Filtration Rate Calc > 60.0 Calcium Level 8.2 mg/dl (8.4-10.2) Total Bilirubin 0.6 mg/dl (0.2-1.3) Aspartate Amino Transf (AST/SGOT) 70 U/L (0-35) Alanine Aminotransferase (ALT/SGPT) 37 U/L (0-56) Alkaline Phosphatase 252 U/L (0-126) Total Protein 6.4 g/dl (6.3-8.2) Albumin 3.1 g/dl (3.5-5.0) Coagulation Test 05/17/18 08:14 Prothrombin Time 15.0 seconds Prothromb Time International Ratio 1.17 Activated Partial Thromboplast Time 33 seconds EKG/Imaging Imaging PATIENT NAME: Renard Rai : 1945 MR: [id number] V: [id number] EXAM DATE: ORDERING PHYSICIAN: VAISHALI KIM TECHNOLOGIST: Location: [facility] - [place], [place] Patient: Renard Rai : 1945 Visit/Account:[id number] Date of Sevice: 05/17/2018 Technique: CHEST PA LAT, RIBS RIGHT HISTORY: fall Comparison studies: Chest radiograph April 23, 2018, CT chest April 23, 2018 FINDINGS: No pneumothorax. No pleural effusion. Postoperative changes are noted consistent with gastric pull-through. The cardiac silhouette is unchanged. Multiple old right-sided rib fractures are noted.. There is no acute fracture. IMPRESSION: 1. No acute cardiopulmonary or acute osseous process. 2. Multiple old right-sided rib fractures. PATIENT NAME: Renard Rai : 1945 MR: [id number] V: [id number] EXAM DATE: [id number] ORDERING PHYSICIAN: VAISHALI KIM TECHNOLOGIST: Location: [facility] - [place], [place] Patient: Renard Rai : 1945 Visit/Account:[id number] Date of Sevice: 05/17/2018 Technique: CHEST PA LAT, RIBS RIGHT HISTORY: fall Comparison studies: Chest radiograph April 23, 2018, CT chest April 23, 2018 FINDINGS: No pneumothorax. No pleural effusion. Postoperative changes are noted consistent with gastric pull-through. The cardiac silhouette is unchanged. Multiple old right-sided rib fractures are noted.. There is no acute fracture. IMPRESSION: 1. No acute cardiopulmonary or acute osseous process. 2. Multiple old right-sided rib fractures. ED Course/Re-evaluation ED Course Patient is a 73-year-old male here with complaints of right-sided ecchymosis, mild edema after falling approximately 10 days prior after tripping on his dog. Patient does have history significant for alcohol abuse, liver disease. Blood counts were checked as well as a coag panel due to persistent ecchymosis. No acute new fractures were identified on x-ray imaging of the chest and ribs. Patient was given prescription for tramadol for breakthrough pain. Recommend follow up with PCP. Blood counts were found to be stable. Return precautions provided. Decision to Disposition Date: May 17, 2018 Decision to Disposition Time: 09:11 Depart Departure Latest Vital Signs Vital Signs Date Time Temp Pulse Resp B/P (MAP) Pulse Ox O2 Delivery O2 Flow Rate FiO2 3/30/19 08:02 98.2 90 20 145/90 92 Impression: Primary Impression: Fall Additional Impression: Hematoma Condition: Improved Disposition: HOME OR SELF-CARE New Scripts Tramadol Hcl (TRAMADOL HCL) 50 Mg Tablet 50 MG PO Q6H PRN for PAIN, #10 TAB 0 Refills Prov: VAISHALI KIM DO 05/17/18 Patient Instructions: Hematoma (ED) Additional Instructions: Please monitor for signs of increased swelling, worsening pain, difficulty breathing. You may take 1 tramadol every 6-8 hours as needed for pain control. Please follow-up with your family doctor in the next 3-5 days. Please return if you develop worsening pain, worsening swelling. Problem Qualifiers VAISHALI KIM DO May 17, 2018 08:01
[2018-05-17 08:02] VITALS: BP 145/90
[2018-05-17 08:34] LABS: PLATELET COUNT, AUTOMATED 273 K/uL (150-450)
[2018-05-17 08:40] LABS: INR 1.17
[2018-05-17] MEDS ORDERED: LIDOCAINE 5% PATCH TP SCH (09:00)
--- NOTE | 2018-05-17 09:03 | RADIOLOGY IMAGING REPORT ---
FACILITY: [facility] PATIENT NAME: Renard Rai : 1945 MR: [id number] V: [id number] EXAM DATE: ORDERING PHYSICIAN: VAISHALI KIM TECHNOLOGIST: Location: [facility] Patient: Renard Rai : 1945 Visit/Account:[id number] Date of Sevice: 05/17/2018 Technique: CHEST PA LAT, RIBS RIGHT HISTORY: fall Comparison studies: Chest radiograph April 23, 2018, CT chest April 23, 2018 FINDINGS: No pneumothorax. No pleural effusion. Postoperative changes are noted consistent with gastr ic pull-through. The cardiac silhouette is unchanged. Multiple old right-sided rib fractures are note d.. There is no acute fracture. IMPRESSION: 1. No acute cardiopulmonary or acute osseous process. 2. Multiple old right-sided rib fractures. Report Dictated By: Ramon Evangelista DO at 05/17/2018 8:55 AM Report E-Signed By: Ramon Evangelista DO at 05/17/2018 8:59 AM WSN:[id number]
--- NOTE | 2018-05-17 09:04 | RADIOLOGY IMAGING REPORT ---
FACILITY: [facility] - [place] PATIENT NAME: Renard Rai : 1945 MR: [id number] V: [id number] EXAM DATE: ORDERING PHYSICIAN: VAISHALI KIM TECHNOLOGIST: Location: [facility] - [place] Patient: Renard Rai : 1945 Visit/Account:[id number] Date of Sevice: 05/17/2018 Technique: CHEST PA LAT, RIBS RIGHT HISTORY: fall Comparison studies: Chest radiograph April 23, 2018, CT chest April 23, 2018 FINDINGS: No pneumothorax. No pleural effusion. Postoperative changes are noted consistent with gastr ic pull-through. The cardiac silhouette is unchanged. Multiple old right-sided rib fractures are note d.. There is no acute fracture. IMPRESSION: 1. No acute cardiopulmonary or acute osseous process. 2. Multiple old right-sided rib fractures. Report Dictated By: Ramon Evangelista DO at 05/17/2018 8:55 AM Report E-Signed By: Ramon Evangelista DO at 05/17/2018 8:59 AM WSN:[id number]
[2018-05-17] MEDS ORDERED: TRAM-420 PO (09:10)
[2018-05-17] MEDS ORDERED: PATCH REMOVAL 1 EA TOP SCH (21:00)
== END 2018-05-17 09:21 | disposition home or self-care (01) ==
LOC: ER 08:04
DX: S30.1XXA Contusion of abdominal wall, initial encounter (principal); W01.0XXA Fall on same level from slipping, tripping and stumbling without subsequent striking against object, initial encounter
CPT/HCPCS: 71046; 71100; 85025; 85610; 85730; 99284; A9270; 82040; 82247; 82310; 82374; 82435; 82565; 82947; 84075; 84132; 84155; 84295; 84450; 84460; 84520

== ENCOUNTER 2018-08-04 20:58 | Inpatient (IN) | payer MEDICARE ==
[2016-05-14 11:11] VITALS: Ht 182.9 cm; Wt 59.9 kg
[~2018-08-04] VITALS: Ht 182.9 cm; Wt 59.9 kg
[~2018-08-04 20:58] MED LIST changes: -OMEP-125 PO; +OMEP-126 PO; +THIA250T PO; -THIA250T12 PO
--- NOTE | 2018-08-04 21:19 | ER Report ---
History and Physical Time Seen By MD: 21:17 HPI/ROS CHIEF COMPLAINT: Syncope HISTORY OF PRESENT ILLNESS: This is a 73-year-old male. He is having ongoing problems with syncope. Syncopal episodes at least once a day with subsequent falls. Uncertain etiology of these episodes. Always accompanied it with some chest pain across his chest followed by the syncopal episode. He has tried to follow up with his doctor [facility] who recommended a stress test. Trying to get this established and sounds like they have an appointment in August to have this done. Denies any fevers or chills or illnesses with this. He is not short of breath or having cough. No report of seizure activity when he has these episodes. When he wakes up he is alert and oriented but is very weak. He does have diabetes and his doctors have decreased his sliding scale insulin but there is no evidence that it is related to low blood sugar events, and some events have happened when his blood sugar is very high. They usually happen when he either stands up suddenly or if he has been standing for a while. He has had some very low blood pressure readings various visits to his doctors. No history of heart problems in the past such as MO or stents. Doesn't sound like he has w orn any type of a Holter monitor or event monitor for these problems. He does try and eat and drink enough, sometimes it is been thought that it was due to not eating or drinking enough but today has had adequate fluid and oral intake and still had syncopal episodes. Denies any vision changes with this. He is not currently dizzy. REVIEW OF SYSTEMS: Constitutional: No fever or chills. Eyes: No vision changes. ENT: No sore throat. No congestion. Cardiovascular: As above. Respiratory: As above. Gastrointestinal: No abdominal pain. No nausea or vomiting. No change in bowel movements. No blood in the stool or melena. Genitourinary: No dysuria. No hematuria. No frequency Musculoskeletal: Has a few bruises and contusions on the body from the falls but otherwise denies musculoskeletal pain. Has a little bit of pain in the left side of his neck. Skin: No rashes. Bruising in the face around the right forehead and cheek bone Neurological: No numbness. No headache. Allergies: Coded Allergies: No Known Drug Allergies (Verified , 05/17/18) Home Meds Reported Medications Bupropion Hcl (BUPROPION HCL) 100 Mg Tablet, 100 MG PO DAILY, TAB 08/05/18 Aspirin (ASPIR 81) 81 Mg Tablet.dr, 81 MG PO QDAY, TAB 08/05/18 Omeprazole (OMEPRAZOLE) 20 Mg Capsule.dr, 1 CAP PO QDAY, CAP 08/05/18 Escitalopram Oxalate (ESCITALOPRAM OXALATE) 10 Mg Tablet, 20 MG PO QDAY, TAB 08/05/18 Fluoxetine Hcl (FLUOXETINE HCL) 20 Mg Capsule, 40 MG PO QDAY, CAPSULE 08/05/18 Insulin Aspart 100 Un/Ml Pen (NOVOLOG FLEXPEN) 100 Unit/1 Ml Insuln.pen, 100 UNIT SQ, ML 02/14/18 Thiamine Hcl (VITAMIN B-1) 250 Mg Tablet, 250 MG PO QDAY 02/14/18 Tamsulosin Hcl (TAMSULOSIN HCL) 0.4 Mg Cap.er.24h, 0.4 MG PO QDAY, CAP 12/01/17 Discontinued Reported Medications Bupropion Hcl (BUPROPION HCL) 100 Mg Tablet, 100 MG PO BID, TAB 08/05/18 Omeprazole (OMEPRAZOLE) 20 Mg Tablet.dr, 20 MG PO BID, TAB 08/05/18 Fluoxetine Hcl (FLUOXETINE HCL) 20 Mg Capsule, 20 MG PO QDAY, CAPSULE 02/14/18 Multivit-Min/Iron Fum/Folic AC (Uvcaq-Ogwvtyq-Ixhstlkl Tablet) 7.5 Mg Iron-400 Mcg Tablet, DAILY 12/01/17 Discontinued Scripts Tramadol Hcl (TRAMADOL HCL) 50 Mg Tablet, 50 MG PO Q6H PRN for PAIN, #10 TAB 0 Refills Prov:VAISHALI KIM DO 05/17/18 Insulin Lispro 100 Un/Ml Vial (HUMALOG 100 U/ML VIAL) 100 Unit/1 Ml Vial, 2-10 UNIT SUBQ SS PRN for SLIDING SCALE INSULIN, #1 VIAL 1 Refill Prov:LISHA ARVIZU MD 05/17/16 Past Medical/Surgical History History of a bundle branch block type 2 diabetes, hiatal hernia, GERD, esophageal cancer and pancreatic cancer status post surgery, chemotherapy and radiation back in 2003, depression Reviewed Nurses Notes: Yes Hx Smoking: Yes Smoking Status: Never Smoker, Former Smoker Hx Substance Use Disorder: Yes Hx Alcohol Use: Yes (Last drink 11/2017, states drank 0.5 gallon a day) Constitutional Vital Sign - Last 24 Hours 08/04/18 08/04/18 08/04/18 08/04/18 20:58 21:05 21:07 21:28 Temp 97.7 Pulse ??? 83 77 Resp 18 27 B/P (MAP) 102/78 (86) 102/78 Pulse Ox 97 99 O2 Delivery Room Air 08/04/18 08/04/18 08/04/18 08/04/18 21:30 21:52 21:56 21:58 Pulse 95 Resp 23 B/P (MAP) 111/81 (91) 104/76 (85) 111/67 (82) Pulse Ox 93 08/04/18 08/04/18 08/04/18 08/04/18 22:00 22:11 22:28 22:30 Pulse 85 88 90 99 Resp 10 B/P (MAP) 113/82 (92) 104/76 (85) 109/78 (88) 111/67 (82) 113/82 (92) Pulse Ox 96 08/04/18 08/04/18 08/04/18 08/04/18 22:58 23:00 23:09 23:28 Pulse ??? 97 Resp 14 B/P (MAP) ???/??? (1665) 121/83 (96) Pulse Ox 81 08/04/18 08/04/18 08/05/18 08/05/18 23:30 23:58 00:00 00:05 Pulse 91 89 Resp 21 31 B/P (MAP) 94/82 (86) 94/68 (77) Pulse Ox 96 91 08/05/18 00:30 B/P (MAP) 90/66 (74) Intake and Output 08/04/18 08/04/18 08/05/18 15:01 23:01 07:01 Intake Total 1000 ml Balance 1000 ml Physical Exam General Appearance: The patient is alert. No acute distress. Eyes: Pupils are equal, round. Reactive to light. No pallor, injection or icterus. Extraocular movements are intact. No nystagmus. ENT: Mucous membranes are moist. Normal oral mucosa. Posterior oropharynx is normal. Neck: Supple and non tender. Respiratory: Lungs are clear to auscultation. Cardiovascular: Irregularly irregular rhythm, but normal rate. No murmurs, gallops or rubs. Normal capillary refill. No edema. Gastrointestinal: Abdomen is soft and non tender. Nondistended. Normal active bowel sounds. Neurological: Alert and oriented x3. Cranial nerves II through XII show no acute deficits on my exam. No focal neurologic deficits in the extremities. Skin: Warm and dry. No rashes. Musculoskeletal: Extremities are nontender. Full range of motion. No tenderness in palpation of the cervical, thoracic and lumbar spine. DIFFERENTIAL DIAGNOSIS: After history and physical exam, differential diagnosis was considered for syncope including but not limited to vasovagal syncope, arrhythmia, dehydration, and blood loss. Medical Decision Making Data Points Result Diagram: 08/04/18213908/04/182139 Laboratory Hematology Test 08/04/18 21:40 08/04/18 23:19 Red Blood Count 3.57 M/uL (4.00-5.60) Mean Corpuscular Volume 104.7 fL (80.0-96.0) Mean Corpuscular Hemoglobin 36.5 pg (26.0-33.0) Mean Corpuscular Hemoglobin Concent 34.8 g/dL (32.0-36.0) Red Cell Distribution Width 14.8 % (11.5-14.5) Mean Platelet Volume 8.7 fL (7.2-11.1) Neutrophils (%) (Auto) 66.6 % (39.4-72.5) Lymphocytes (%) (Auto) 21.5 % (17.6-49.6) Monocytes (%) (Auto) 10.4 % (4.1-12.4) Eosinophils (%) (Auto) 0.5 % (0.4-6.7) Basophils (%) (Auto) 1.0 % (0.3-1.4) Nucleated RBC Relative Count (auto) 0.4 /100WBC Neutrophils # (Auto) 4.6 K/uL (2.0-7.4) Lymphocytes # (Auto) 1.5 K/uL (1.3-3.6) Monocytes # (Auto) 0.7 K/uL (0.3-1.0) Eosinophils # (Auto) 0.0 K/uL (0.0-0.5) Basophils # (Auto) 0.1 K/uL (0.0-0.1) Nucleated RBC Absolute Count (auto) 0.03 K/uL Sodium Level 133 mmol/L (137-145) Potassium Level 4.6 mmol/L (3.5-5.0) Chloride Level 97 mmol/L (98-107) Carbon Dioxide Level 27 mmol/L (22-30) Blood Urea Nitrogen 9 mg/dl (9-21) Creatinine 0.80 mg/dl (0.66-1.25) Glomerular Filtration Rate Calc > 60.0 Random Glucose 167 mg/dl (75-110) Calcium Level 8.4 mg/dl (8.4-10.2) Magnesium Level 1.6 mg/dl (1.7-2.2) Total Bilirubin 1.6 mg/dl (0.2-1.3) Aspartate Amino Transf (AST/SGOT) 186 U/L (0-35) Alanine Aminotransferase (ALT/SGPT) 96 U/L (0-56) Alkaline Phosphatase 361 U/L (0-126) Troponin I < 0.012 ng/ml Total Protein 6.3 g/dl (6.3-8.2) Albumin 2.9 g/dl (3.5-5.0) Urine Color Yellow Urine Clarity Clear Urine pH 7.0 pH (4.8-9.5) Urine Specific [place] 1.012 Urine Protein Negative mg/dL (NEGATIVE) Urine Glucose (UA) Negative mg/dL (NEGATIVE) Urine Ketones Negative mg/dL (NEGATIVE) Urine Blood Negative (NEGATIVE) Urine Nitrite Negative (NEGATIVE) Urine Bilirubin Negative (NEGATIVE) Urine Urobilinogen 4.0 mg/dL (0.2-1.9) Urine Leukocyte Esterase Negative (NEGATIVE) Urine RBC <1 /HPF (0-2/HPF) Urine WBC <1 /HPF (0-5/HPF) Urine Squamous Epithelial Cells Moderate /LPF (</=FEW) Urine Bacteria Negative /HPF (NONE-FEW) Urine Mucus None /HPF (NONE-FEW) Chemistry Test 08/04/18 21:40 08/04/18 23:19 White Blood Count 6.9 k/uL (4.5-11.0) Red Blood Count 3.57 M/uL (4.00-5.60) Hemoglobin 13.0 g/dL (14.0-18.0) Hematocrit 37.4 % (42.0-52.0) Mean Corpuscular Volume 104.7 fL (80.0-96.0) Mean Corpuscular Hemoglobin 36.5 pg (26.0-33.0) Mean Corpuscular Hemoglobin Concent 34.8 g/dL (32.0-36.0) Red Cell Distribution Width 14.8 % (11.5-14.5) Platelet Count 182 K/uL (150-450) Mean Platelet Volume 8.7 fL (7.2-11.1) Neutrophils (%) (Auto) 66.6 % (39.4-72.5) Lymphocytes (%) (Auto) 21.5 % (17.6-49.6) Monocytes (%) (Auto) 10.4 % (4.1-12.4) Eosinophils (%) (Auto) 0.5 % (0.4-6.7) Basophils (%) (Auto) 1.0 % (0.3-1.4) Nucleated RBC Relative Count (auto) 0.4 /100WBC Neutrophils # (Auto) 4.6 K/uL (2.0-7.4) Lymphocytes # (Auto) 1.5 K/uL (1.3-3.6) Monocytes # (Auto) 0.7 K/uL (0.3-1.0) Eosinophils # (Auto) 0.0 K/uL (0.0-0.5) Basophils # (Auto) 0.1 K/uL (0.0-0.1) Nucleated RBC Absolute Count (auto) 0.03 K/uL Glomerular Filtration Rate Calc > 60.0 Calcium Level 8.4 mg/dl (8.4-10.2) Magnesium Level 1.6 mg/dl (1.7-2.2) Total Bilirubin 1.6 mg/dl (0.2-1.3) Aspartate Amino Transf (AST/SGOT) 186 U/L (0-35) Alanine Aminotransferase (ALT/SGPT) 96 U/L (0-56) Alkaline Phosphatase 361 U/L (0-126) Troponin I < 0.012 ng/ml Total Protein 6.3 g/dl (6.3-8.2) Albumin 2.9 g/dl (3.5-5.0) Urine Color Yellow Urine Clarity Clear Urine pH 7.0 pH (4.8-9.5) Urine Specific [place] 1.012 Urine Protein Negative mg/dL (NEGATIVE) Urine Glucose (UA) Negative mg/dL (NEGATIVE) Urine Ketones Negative mg/dL (NEGATIVE) Urine Blood Negative (NEGATIVE) Urine Nitrite Negative (NEGATIVE) Urine Bilirubin Negative (NEGATIVE) Urine Urobilinogen 4.0 mg/dL (0.2-1.9) Urine Leukocyte Esterase Negative (NEGATIVE) Urine RBC <1 /HPF (0-2/HPF) Urine WBC <1 /HPF (0-5/HPF) Urine Squamous Epithelial Cells Moderate /LPF (</=FEW) Urine Bacteria Negative /HPF (NONE-FEW) Urine Mucus None /HPF (NONE-FEW) Urinalysis Test 08/04/18 23:19 Urine Color Yellow Urine Clarity Clear Urine pH 7.0 pH (4.8-9.5) Urine Specific [place] 1.012 Urine Protein Negative mg/dL (NEGATIVE) Urine Glucose (UA) Negative mg/dL (NEGATIVE) Urine Ketones Negative mg/dL (NEGATIVE) Urine Blood Negative (NEGATIVE) Urine Nitrite Negative (NEGATIVE) Urine Bilirubin Negative (NEGATIVE) Urine Urobilinogen 4.0 mg/dL (0.2-1.9) Urine Leukocyte Esterase Negative (NEGATIVE) Urine RBC <1 /HPF (0-2/HPF) Urine WBC <1 /HPF (0-5/HPF) Urine Squamous Epithelial Cells Moderate /LPF (</=FEW) Urine Bacteria Negative /HPF (NONE-FEW) Urine Mucus None /HPF (NONE-FEW) EKG/Imaging EKG Interpretation 12 lead EKG: Rhythm: Undetermined rhythm, looks irregular, difficult time telling between ectopic rhythm and negative rhythm [place]: Undetermined QRS: Low-voltage for what appears to be the benton rhythm, frequent PVCs ST segments: Unable to determine 12 lead EKG: At 23:32 hours Rhythm: Undetermined irregular rhythm Imaging CT BRAIN NO CONTRAST, CT VERTEBRA CERVICAL (NON CON) CT BRAIN WITHOUT CONTRAST CLINICAL INDICATION: sycope COMPARISON: CT head the August 24, 2016. TECHNIQUE: Contiguous axial CT images of the brain and cervical spine were obtained without IV contrast. Sagittal and coronal reformatted images were also performed. One of the following dose optimization techniques was utilized in the performance of this exam: Automated exposure control; adjustment of the mA and/or kV according to the patient's size; or use of an iterative reconstruction technique. Specific details can be referenced in the facility's radiology CT exam operational policy. FINDINGS: BRAIN: BRAIN: Mild heterogeneous thickening of the falx which is was not definitively appreciated on the prior CT (axial image 64 series 2. Cannot completely exclude a small parafalcine subdural hematoma. Mild prominence of the ventricles and sulci is consistent with atrophy. There are areas of low attenuation in the periventricular and subcortical white matter which are nonspecific, but suggestive of chronic microvascular ischemic change. The brainstem and cerebellum appear normal. The basilar cisterns appear normal. There is no mass, acute infarct, or shift of midline. Vascular atherosclerotic calcifications are present. PARANASAL SINUSES & MASTOIDS: Well aerated. SKULL BASE & CRANIUM: Visualized osseous structures are intact. SOFT TISSUES: Mild soft tissue swelling/hematomas within the right frontal soft tissues. CERVICAL SPINE: Alignment: Straightening of the normal cervical lordosis, likely related to moderate to advanced degenerative disc disease. Cranio-cervical junction: Negative. Vertebral bodies: Negative. Posterior elements: Negative. Hardware: None. Disc Spaces: Advanced degenerative disc disease at C4-C5. There is 2-3 mm retrolisthesis of C4 on C5. Moderate degenerative disease at C3-C4, C5-C6, and C6-C7. Soft tissues: Negative. Visualized upper chest: Partial visualization of esophagectomy and gastric pull- through. IMPRESSION 1. No definitive acute abnormality. 2. Mild nonspecific heterogeneous thickening of the falx which was not present on prior CT from August 24, 2016. This may represent a small subdural hemorrhage, age indeterminant however favored subacute/chronic. 3. Mild right frontal soft tissue swelling/hematomas. 4. Moderate to advanced degenerative disc disease within the cervical spine. Results were discussed with MONTSERRAT OWUSU at 08/04/2018 11:22 PM. Report Dictated By: Krzysztof Stephens MD at 08/04/2018 11:13 PM CHEST SINGLE AP Indication: syncope Comparison: None available Findings: Heart size within normal limits. 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 Small-volume heterogeneous consolidation within the left lung base which may represent atelectasis alone although cannot exclude underlying pneumonia. No pneumothorax or right pleural effusion. Possible small left pleural effusion Chronic healed right-sided rib fractures. Seems to be working IMPRESSION: Small and heterogeneous consolidation within the left lung base which may represent atelectasis alone however cannot exclude underlying pneumonia and/or small pleural effusion. Report Dictated By: Krzysztof Stephens MD at 08/04/2018 11:07 PM ED Course/Re-evaluation Clinical Indication for ER IV: Hydration, IV Access ED Course Orthostatic vital signs are negative for changes in blood pressure, only very slight increase in pulse with standing. Patient was hydrated. Imaging as noted above. Significant ectopy on monitor. Mild changes in electrolytes, and magnesium is low at 1.5. Discussed at length with the patient and his son. Recommended transfer for cardiology evaluation however they do not want to do this. He is asking if it would be possible to stay here and start the workup. [facility]. This would not twice a day he'll because of the concern for malignant arrhythmia that we would not be able to treat here. He indicated that he has as his CODE STATUS DO NOT RESUSCITATE/DO NOT INTUBATE. Discussed the case with our hospitalist, Dr. Jasper Arvizu, who did accept the patient for admission here with the explanation to the patient and family that we do not farr ve cardiology here in the limitations that we would have here at [facility] [place]. Decision to Disposition Date: Aug 05, 2018 Decision to Disposition Time: 00:00 Depart Departure Latest Vital Signs Vital Signs Date Time Temp Pulse Resp B/P (MAP) Pulse Ox O2 Delivery O2 Flow Rate FiO2 08/05/18 00:30 90/66 (74) 08/05/18 00:05 89 31 91 08/04/18 21:07 97.7 Room Air Impression: Primary Impression: Syncope Condition: Condition Unchanged Disposition: Admitted from ER Problem Qualifiers Primary Impression: Syncope Syncope type: unspecified Qualified Codes: R55 - Syncope and collapse MONTSERRAT OWUSU MD Aug 04, 2018 21:19
[2018-08-04] MEDS ORDERED: NS(*) 0.9% 1000 ML BAG 1,000 ML IV ONE (21:28)
[2018-08-04 21:50] LABS: PLATELET COUNT, AUTOMATED 182 K/uL (150-450)
--- NOTE | 2018-08-04 23:18 | RADIOLOGY IMAGING REPORT ---
FACILITY: [facility] PATIENT NAME: Renard Rai : 1945 MR: [id number] V: [id number] EXAM DATE: ORDERING PHYSICIAN: MONTSERRAT OWUSU TECHNOLOGIST: Location: [facility] [place] Patient: Renard Rai : 1945 Visit/Account:[id number] Date of Sevice: 08/04/2018 CHEST SINGLE AP Indication: syncope Comparison: None available Findings: Heart size within normal limits. 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 Small-volume heterogeneous consolidation within the left lung base which may represent atelectasis al one although cannot exclude underlying pneumonia. No pneumothorax or right pleural effusion. Possible small left pleural effusion Chronic healed right-sided rib fractures. Seems to be working IMPRESSION: Small and heterogeneous consolidation within the left lung base which may represent atelectasis alone however cannot exclude underlying pneumonia and/or small pleural effusion. Report Dictated By: Krzysztof Stephens MD at 08/04/2018 11:07 PM Report E-Signed By: Krzysztof Stephens MD at 08/04/2018 11:12 PM WSN:[id number]
[2018-08-04] MEDS ORDERED: MORPHINE 4 MG/ML SDV IVP ONE (23:25)
--- NOTE | 2018-08-04 23:28 | RADIOLOGY IMAGING REPORT ---
FACILITY: [facility] [place] PATIENT NAME: Renard Rai : 1945 MR: [id number] V: [id number] EXAM DATE: [id number] ORDERING PHYSICIAN: MONTSERRAT OWUSU TECHNOLOGIST: Location: [facility] Patient: Renard Rai : 1945 Visit/Account:[id number] Date of Sevice: 08/04/2018 CT BRAIN NO CONTRAST, CT VERTEBRA CERVICAL (NON CON) CT BRAIN WITHOUT CONTRAST CLINICAL INDICATION: sycope COMPARISON: CT head the August 24, 2016. TECHNIQUE: Contiguous axial CT images of the brain and cervical spine were obtained without IV contra st. Sagittal and coronal reformatted images were also performed. One of the following dose optimization techniques was utilized in the performance of this exam: Autom ated exposure control; adjustment of the mA and/or kV according to the patient's size; or use of an i terative reconstruction technique. Specific details can be referenced in the facility's radiology C T exam operational policy. FINDINGS: BRAIN: BRAIN: Mild heterogeneous thickening of the falx which is was not definitively appreciated on the prior CT ( axial image 64 series 2. Cannot completely exclude a small parafalcine subdural hematoma. Mild prominence of the ventricles and sulci is consistent with atrophy. There are areas of low attenu ation in the periventricular and subcortical white matter which are nonspecific, but suggestive of ch ronic microvascular ischemic change. The brainstem and cerebellum appear normal. The basilar cistern s appear normal. There is no mass, acute infarct, or shift of midline. Vascular atherosclerotic calci fications are present. PARANASAL SINUSES & MASTOIDS: Well aerated. SKULL BASE & CRANIUM: Visualized osseous structures are intact. SOFT TISSUES: Mild soft tissue swelling/hematomas within the right frontal soft tissues. CERVICAL SPINE: Alignment: Straightening of the normal cervical lordosis, likely related to moderate to advanced dege nerative disc disease. Cranio-cervical junction: Negative. Vertebral bodies: Negative. Posterior elements: Negative. Hardware: None. Disc Spaces: Advanced degenerative disc disease at C4-C5. There is 2-3 mm retrolisthesis of C4 on C5. Moderate degenerative disease at C3-C4, C5-C6, and C6-C7. Soft tissues: Negative. Visualized upper chest: Partial visualization of esophagectomy and gastric pull-through. IMPRESSION 1. No definitive acute abnormality. 2. Mild nonspecific heterogeneous thickening of the falx which was not present on prior CT from August 24, 2016. This may represent a small subdural hemorrhage, age indeterminant however favored subacute/c hronic. 3. Mild right frontal soft tissue swelling/hematomas. 4. Moderate to advanced degenerative disc disease within the cervical spine. Results were discussed with MONTSERRAT OWUSU at 08/04/2018 11:22 PM. Report Dictated By: Krzysztof Stephens MD at 08/04/2018 11:13 PM Report E-Signed By: Krzysztof Stephens MD at 08/04/2018 11:22 PM WSN:[id number]
--- NOTE | 2018-08-04 23:28 | RADIOLOGY IMAGING REPORT ---
FACILITY: [facility] PATIENT NAME: Renard Rai : 1945 MR: [id number] V: [id number] EXAM DATE: [id number] ORDERING PHYSICIAN: MONTSERRAT OWUSU TECHNOLOGIST: Location: [facility] [place] Patient: Renard Rai : 1945 Visit/Account:[id number] Date of Sevice: 08/04/2018 CT BRAIN NO CONTRAST, CT VERTEBRA CERVICAL (NON CON) CT BRAIN WITHOUT CONTRAST CLINICAL INDICATION: sycope COMPARISON: CT head the August 24, 2016. TECHNIQUE: Contiguous axial CT images of the brain and cervical spine were obtained without IV contra st. Sagittal and coronal reformatted images were also performed. One of the following dose optimization techniques was utilized in the performance of this exam: Autom ated exposure control; adjustment of the mA and/or kV according to the patient's size; or use of an i terative reconstruction technique. Specific details can be referenced in the facility's radiology C T exam operational policy. FINDINGS: BRAIN: BRAIN: Mild heterogeneous thickening of the falx which is was not definitively appreciated on the prior CT ( axial image 64 series 2. Cannot completely exclude a small parafalcine subdural hematoma. Mild prominence of the ventricles and sulci is consistent with atrophy. There are areas of low attenu ation in the periventricular and subcortical white matter which are nonspecific, but suggestive of ch ronic microvascular ischemic change. The brainstem and cerebellum appear normal. The basilar cistern s appear normal. There is no mass, acute infarct, or shift of midline. Vascular atherosclerotic calci fications are present. PARANASAL SINUSES & MASTOIDS: Well aerated. SKULL BASE & CRANIUM: Visualized osseous structures are intact. SOFT TISSUES: Mild soft tissue swelling/hematomas within the right frontal soft tissues. CERVICAL SPINE: Alignment: Straightening of the normal cervical lordosis, likely related to moderate to advanced dege nerative disc disease. Cranio-cervical junction: Negative. Vertebral bodies: Negative. Posterior elements: Negative. Hardware: None. Disc Spaces: Advanced degenerative disc disease at C4-C5. There is 2-3 mm retrolisthesis of C4 on C5. Moderate degenerative disease at C3-C4, C5-C6, and C6-C7. Soft tissues: Negative. Visualized upper chest: Partial visualization of esophagectomy and gastric pull-through. IMPRESSION 1. No definitive acute abnormality. 2. Mild nonspecific heterogeneous thickening of the falx which was not present on prior CT from August 24, 2016. This may represent a small subdural hemorrhage, age indeterminant however favored subacute/c hronic. 3. Mild right frontal soft tissue swelling/hematomas. 4. Moderate to advanced degenerative disc disease within the cervical spine. Results were discussed with MONTSERRAT OWUSU at 08/04/2018 11:22 PM. Report Dictated By: Krzysztof Stephens MD at 08/04/2018 11:13 PM Report E-Signed By: Krzysztof Stephens MD at 08/04/2018 11:22 PM WSN:[id number]
[2018-08-05] VITALS (7 sets, daily range): BP systolic 100–122; BP diastolic 67–79
--- NOTE | 2018-08-05 00:01 | EKG ---
FACILITY: [facility] [place] PATIENT NAME: KANIKA MAJANO : [id number] MR: [id number] V: [id number] EXAM DATE: ORDERING PHYSICIAN: MONTSERRAT OWUSU TECHNOLOGIST: DANIEL Test Reason : SYNCOPE Blood Pressure : / mmHG Vent. Rate : 085 BPM Atrial Rate : 085 BPM P-R Int : 178 ms QRS Dur : 112 ms QT Int : 408 ms P-R-T Axes : 044 -16 078 degrees QTc Int : 485 ms Sinus rhythm with occasional premature ventricular complexes Frequent aberrantly conducted complexes with LBBB morphology Abnormal ECG Diffuse artifact - repeat if needed Confirmed by LISHA MCDUFFIE ([id number]) on 08/05/2018 12:59:02 AM Referred By: Confirmed By:LISHA MCDUFFIE
[2018-08-05] MEDS ORDERED: MAGNESIUM SUL* 2 GM/50 ML IVPB 50 ML IVPB ONE (00:05)
[2018-08-05] MEDS ORDERED: FLUO-177 PO (00:26)
[2018-08-05] MEDS ORDERED: BUPR-149 PO ×2 (00:26→02:24)
[2018-08-05] MEDS ORDERED: OMEP-137 PO (00:26)
[2018-08-05] MEDS ORDERED: ESCI10TA8 PO (00:26)
--- NOTE | 2018-08-05 01:14 | EKG ---
FACILITY: [facility] PATIENT NAME: KANIKA MAJANO : [id number] MR: [id number] V: [id number] EXAM DATE: ORDERING PHYSICIAN: MONTSERRAT OWUSU TECHNOLOGIST: DANIEL Test Reason : SYNCOPE Blood Pressure : / mmHG Vent. Rate : 103 BPM Atrial Rate : 103 BPM P-R Int : 174 ms QRS Dur : 124 ms QT Int : 376 ms P-R-T Axes : 055 -13 075 degrees QTc Int : 492 ms Sinus tachycardia with PVCs and aberrantly conducted complexes with LBBB morphology Abnormal ECG Fairly similar to previous EKG Confirmed by LISHA MCDUFFIE ([id number]) on 08/05/2018 6:19:33 AM Referred By: Confirmed By:LISHA MCDUFFIE
[2018-08-05] MEDS ORDERED: NS(*) 0.9% 1000 ML BAG 1,000 ML IV PRN (01:31)
[2018-08-05] MEDS ORDERED: ACETAMINOPHEN 325 MG TAB PO PRN (01:40)
--- NOTE | 2018-08-05 01:50 | History & Physical ---
History of Present Illness Chief Complaint Passing out History of Present Illness 73yo male with PMHx significant for esophageal cancer s/p distal esophagectomy with gastric pull-up, BPH, diabetes mellitus, pancreatic tumor s/p partial pancreatectomy, cholecystectomy, splenectomy. He reports having episodes of "passing out" multiple times over the past three weeks or more. He states he has no warning symptoms such as dizziness/lightheadedness, visual changes, CP, palpitations, SOB, focal weakness. He will usually fall to the ground and he d oes not feel he loses consciousness (at least not for very long). These episodes have been witnessed by his son and . These have caused some minor skin injuries and "I hurt my neck in one" (CT scan was negative for acute injury). He states he has had some hypoglycemic episodes lately, but not associated with these events. He also reports occasional chest pains (tightness across anterior chest and into left arm), but they have not been associated with the episodes as well. He was evaluated in the ER and found to have mild hypomagnesemia. His EKG shows sinus rhythm with PVCs and aberrantly conducted complexes with LBBB morphology. Dr. Tavera recommended he be transferred for evaluation with cardiology, but the patient refused transfer. He wished to have evaluation, but does understand we are limited in the personnel and testing resources we have in [place]. He does understand this could be a malignant dysrhythmia and he could from it. He has decided he wants to be DNR/DNI status. History Problems: (1) Pancreatic cyst Status: Chronic (2) Esophageal cancer Status: Chronic (3) Diabetes mellitus Status: Chronic (4) History of alcohol use disorder Status: Chronic (5) Hx of esophagectomy Status: Resolved (6) History of partial pancreatectomy Status: Resolved (7) Abnormal EKG Status: Chronic (8) BPH (benign prostatic hyperplasia) Status: Chronic Home Meds Active Scripts Insulin Lispro 100 Un/Ml Vial (HUMALOG 100 U/ML VIAL) 100 Unit/1 Ml Vial, 2-10 UNIT SUBQ SS PRN for SLIDING SCALE INSULIN, #1 VIAL 1 Refill Prov:LISHA MCDUFFIE MD 05/17/16 Reported Medications Escitalopram Oxalate (ESCITALOPRAM OXALATE) 10 Mg Tablet, 20 MG PO QDAY, TAB 08/05/18 Bupropion Hcl (BUPROPION HCL) 100 Mg Tablet, 100 MG PO BID, TAB 08/05/18 Fluoxetine Hcl (FLUOXETINE HCL) 20 Mg Capsule, 40 MG PO QDAY, CAPSULE 08/05/18 Omeprazole (OMEPRAZOLE) 20 Mg Tablet.dr, 20 MG PO BID, TAB 08/05/18 Insulin Aspart 100 Un/Ml Pen (NOVOLOG FLEXPEN) 100 Unit/1 Ml Insuln.pen, 100 UNIT SQ, ML 02/14/18 Thiamine Hcl (VITAMIN B-1) 250 Mg Tablet, 250 MG PO QDAY 02/14/18 Tamsulosin Hcl (TAMSULOSIN HCL) 0.4 Mg Cap.er.24h, 0.4 MG PO QDAY, CAP 12/01/17 Discontinued Reported Medications Fluoxetine Hcl (FLUOXETINE HCL) 20 Mg Capsule, 20 MG PO QDAY, CAPSULE 02/14/18 Multivit-Min/Iron Fum/Folic AC (Veifb-Hustsgn-Squrvsef Tablet) 7.5 Mg Iron-400 Mcg Tablet, DAILY 12/01/17 Discontinued Scripts Tramadol Hcl (TRAMADOL HCL) 50 Mg Tablet, 50 MG PO Q6H PRN for PAIN, #10 TAB 0 Refills Prov:VAISHALI KIM DO 05/17/18 Allergies: Coded Allergies: No Known Drug Allergies (Verified , 05/17/18) Patient History: FH: Alzheimer's disease MOTHER, , Age:77 FH: diabetes mellitus FATHER, , Age:79 FH: hypertension FATHER, , Age:79 FH: stroke FATHER, , Age:79 Hx Smoking: Yes Smoking Status: Former Smoker Caffeine Intake: Coffee Caffeine/Cups Per Day: coffee in morning Hx Alcohol Use: Yes (Last drink 11/2017, states drank 0.5 gallon a day) Hx Substance Use Disorder: No Social Drug Use: Never Review of Systems Constitutional: No Fever, No Chills Neurological: Syncope; No Confusion Eyes: No Vision Change Cardiovascular: Chest Pain; No Palpitations, No Orthostatic Hypotension Respiratory: No Shortness of Breath, No Cough Gastrointestinal: No Nausea, No Vomiting, No Diarrhea, No Hematemesis, No Hematochezia, No Melena, No Abdominal Pain Genitourinary: No Dysuria Exam Vital Signs Vital Signs Date Time Temp Pulse Resp B/P (MAP) Pulse Ox O2 Delivery O2 Flow Rate FiO2 08/05/18 01:05 22 91 08/05/18 01:00 88/60 (69) 08/05/18 00:05 89 08/04/18 21:07 97.7 Room Air General Appearance: Alert, Awake Neuro: No Gross deficits Eyes: PERRLA ENT: Oropharynx Clear, Other (abrasion over the bridge of his nose) Neck: No Masses Cardiovascular: No Edema, Other (Regular with occasional ectopy no obvious murmur) Respiratory: Other (decreased breath sounds bilaterally no rales or wheezes) Chest: No Tenderness GI: Abd Soft and Non-Tender, Other (healed surgical scars/prominent xiphoid) : No CVA Tenderness Lymph: No Adenopathy Musculoskeletal: Other (abrasions over his right flank) Extremities: Warm, Perfused Integumentary: Generalized Fragile Skin Psych: Alert & Oriented X3 Medical Decision Making Data Points Result Diagram: 08/04/18213908/04/182139 Item Value Date Time Albumin 2.9 g/dl L 08/04/182139 Total Protein 6.3 g/dl 08/04/182139 Troponin I < 0.012 ng/ml 08/04/182139 Alkaline Phosphatase 361 U/L H 08/04/182139 Alanine Aminotransferase (ALT/SGPT) 96 U/L H 08/04/182139 Aspartate Amino Transf (AST/SGOT) 186 U/L H 08/04/182139 Total Bilirubin 1.6 mg/dl H 08/04/182139 Magnesium Level 1.6 mg/dl L 08/04/182139 Calcium Level 8.4 mg/dl 08/04/182139 Urine Color Yellow 08/04/182318 Urine Clarity Clear 08/04/182318 Urine pH 7.0 pH 08/04/182318 Urine Specific [place] 1.012 08/04/182318 Urine Protein Negative mg/dL 08/04/182318 Urine Glucose (UA) Negative mg/dL 08/04/182318 Urine Ketones Negative mg/dL 08/04/182318 Urine Blood Negative 08/04/182318 Urine Nitrite Negative 08/04/182318 Urine Bilirubin Negative 08/04/182318 Urine Urobilinogen 4.0 mg/dL H 08/04/182318 Urine Leukocyte Esterase Negative 08/04/182318 Urine RBC <1 /HPF 08/04/182318 Urine WBC <1 /HPF 08/04/182318 Urine Squamous Epithelial Cells Moderate /LPF H 08/04/182318 Urine Bacteria Negative /HPF 08/04/182318 Urine Mucus None /HPF 08/04/182318 EKG / Imaging EKG Interpretation PATIENT NAME: RENARD MAJANO : [id number] MR: [id number] V: [id number] EXAM DATE: ORDERING PHYSICIAN: MONTSERRAT TAVERA TECHNOLOGIST: DANIEL Test Reason : SYNCOPE Blood Pressure : / mmHG Vent. Rate : 085 BPM Atrial Rate : 085 BPM P-R Int : 178 ms QRS Dur : 112 ms QT Int : 408 ms P-R-T Axes : 044 -16 078 degrees QTc Int : 485 ms Sinus rhythm with occasional premature ventricular complexes Frequent aberrantly conducted complexes with LBBB morphology Abnormal ECG Diffuse artifact - repeat if needed Confirmed by LISHA MCDUFFIE ([id number]) on 08/05/2018 12:59:02 AM Referred By: Confirmed By:LISHA MCDUFFIE Imaging PATIENT NAME: Renard Majano : 1945 MR: [id number] V: [id number] EXAM DATE: [id number] ORDERING PHYSICIAN: MONTSERRAT TAVERA TECHNOLOGIST: [place] [facility] [place] : 1945 Visit/Account:[id number] Date of Sevice: 08/04/2018 CT BRAIN NO CONTRAST, CT VERTEBRA CERVICAL (NON CON) CT BRAIN WITHOUT CONTRAST CLINICAL INDICATION: sycope COMPARISON: CT head the August 24, 2016. TECHNIQUE: Contiguous axial CT images of the brain and cervical spine were obtained without IV contrast. Sagittal and coronal reformatted images were also performed. One of the following dose optimization techniques was utilized in the p erformance of this exam: Automated exposure control; adjustment of the mA and/or kV according to the patient's size; or use of an iterative reconstruction technique. Specific details can be referenced in the facility's radiology CT exam operational policy. FINDINGS: BRAIN: BRAIN: Mild heterogeneous thickening of the falx which is was not definitively appreciated on the prior CT (axial image 64 series 2. Cannot completely exclude a small parafalcine subdural hematoma. Mild prominence of the ventricles and sulci is consistent with atrophy. There are areas of low attenuation in the periventricular and subcortical white matter which are nonspecific, but suggestive of chronic microvascular ischemic change. The brainstem and cerebellum appear normal. The basilar cisterns appear normal. There is no mass, acute infarct, or shift of midline. Vascular atherosclerotic calcifications are present. PARANASAL SINUSES & MASTOIDS: Well aerated. SKULL BASE & CRANIUM: Visualized osseous structures are intact. SOFT TISSUES: Mild soft tissue swelling/hematomas within the right frontal soft tissues. CERVICAL SPINE: Alignment: Straightening of the normal cervical lordosis, likely related to moderate to advanced degenerative disc disease. Cranio-cervical junction: Negative. Vertebral bodies: Negative. Posterior elements: Negative. Hardware: None. Disc Spaces: Advanced degenerative disc disease at C4-C5. There is 2-3 mm retrolisthesis of C4 on C5. Moderate degenerative disease at C3-C4, C5-C6, and C6-C7. Soft tissues: Negative. Visualized upper chest: Partial visualization of esophagectomy and gastric pull- through. IMPRESSION 1. No definitive acute abnormality. 2. Mild nonspecific heterogeneous thickening of the falx which was not present on prior CT from August 24, 2016. This may represent a small subdural hemorrhage, age indeterminant however favored subacute/chronic. 3. Mild right frontal soft tissue swelling/hematomas. 4. Moderate to advanced degenerative disc disease within the cervical spine. Results were discussed with MONTSERRAT TAVERA at 08/04/2018 11:22 PM. Report Dictated By: Krzysztof Stephens MD at 08/04/2018 11:13 PM Report E-Signed By: Krzysztof Stephens MD at 08/04/2018 11:22 PM WSN:[id number] PATIENT NAME: Renard Majano : 1945 MR: [id number] V: [id number] EXAM DATE: [id number] ORDERING PHYSICIAN: MONTSERRAT TAVERA TECHNOLOGIST: [place] [facility] [place]ard Maj[place] : 1945 Visit/Account:[id number] Date of Sevice: 08/04/2018 CHEST SINGLE AP Indication: syncope Comparison: None available Findings: Heart size within normal limits. 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 Small-volume heterogeneous consolidation within the left lung base which may r epresent atelectasis alone although cannot exclude underlying pneumonia. No pneumothorax or right pleural effusion. Possible small left pleural effusion Chronic healed right-sided rib fractures. Seems to be working IMPRESSION: Small and heterogeneous consolidation within the left lung base which may represent atelectasis alone however cannot exclude underlying pneumonia and/or small pleural effusion. Report Dictated By: Krzysztof Stephens MD at 08/04/2018 11:07 PM Report E-Signed By: Krzysztof Stephens MD at 08/04/2018 11:12 PM WSN:[id number] Assessment and Plan Problems: (1) Syncope Status: Acute Assessment & Plan: Symptoms and findings thus far would be very concerning for possible cardiac dysrhythmia as the cause. He has also been having chest pains. I discussed this with Mr. Majano again and he reports understanding and still does not wish to be transferred for evaluation with cardiology. Will admit for further monitoring and evaluation. Will place on telemetry. Check serial troponins. Get echocardiogram to evaluate structure and function. Will also replace magnesium and monitor electrolytes. It is possible these episodes could be related to something like hypoglycemia or postural hypotension with his alpha jose antonio for BPH, but his symptoms don't seem to match. Will watch closely. (2) Diabetes mellitus Status: Chronic Assessment & Plan: Vlad place on ADA diet, monitor glucoses and use SSI as needed. He has not been on anything other than short-acting insulin up to this point. (3) BPH (benign prostatic hyperplasia) Status: Chronic Assessment & Plan: Will continue his Flomax 0.4mg daily at bedtime. Watch for any correlation with his symptoms. Venous Thromboembolism Antithrombotics Is Pt On Any Antithrombotics?: Yes Exam Sepsis Risk: No Definite Risk Problem Qualifiers (1) Syncope: Syncope type: unspecified Qualified Codes: R55 - Syncope and collapse LISHA MCDUFFIE MD Aug 05, 2018 01:50
[2018-08-05] MEDS ORDERED: OMEP-126 PO (02:24)
[2018-08-05] MEDS ORDERED: ASPI-1471 PO (02:24)
[2018-08-05 05:58] LABS: PLATELET COUNT, AUTOMATED 162 K/uL (150-450)
[2018-08-05] MEDS ORDERED: PANTOPRAZOLE SOD 40 MG TABEC PO SCH (09:00)
[2018-08-05] MEDS ORDERED: ENOXAPARIN 40 MG/0.4ML SYR SC SCH (09:00)
--- NOTE | 2018-08-05 14:51 | Medical Nutrition Therapy ---
Nutrition Anthropometrics Height (Inches): 72.00 Height (Calculated Centimeters: 182.335071 Weight (Pounds): 132 Weight (Calculated Kilograms): 59.874 BMI: 17.9 Hx Weight Loss: Yes Vance Nutrition Score: Probably Inadequate Vance Nutrition Risk Score: 18 Dietary Referral Nutrition Risk Factors: Significantly Underwt. Nutrition Risk Comment: esophageal cancer 2004 Physical Findings Physical Appearance: Underweight BMI<19 Skin Appearance Skin Appearance: Edema Edema Location Modifier: Edema Location: Type of Edema: Degree of Edema: Gastrointestinal Symptoms GI Symtoms: Tube Present: Bowel Sounds: Recent Bowel Pattern: Stool Characteristics: Nutrition/Food History Difficulty Swallowing Nutritional Diagnosis Nutritional Risk Acuity 2: Diabetes New Dx, Swallowing Problem Nutritional Risk Acuity 3: Alcohol abuse Past Medical History: Espophagial CA 2003, distesophagectomy distal pancreatomy d/t pancreatic tumor 2010, Nutrition Diagnosis: Under-weight Nutrition Etiology: Physiological Causes Energy Requirement: 1811 (MSJ (AF 1.3)) Protein Requirement: 72 (1.2g/kg) Fluid Requirement: 1811 (1mL/kcal) Diet Type: Diabetic Nutrition Intervention: Encourage intake Diet Comment To RSA: Pt may need food chopped up. Nutrition Monitoring & Eval Nutrition Goals: Eat 75-100% Meal RD Patient Assessment Time: [address] Assessment Type: RD Assessment Patient Nutrition Acuity: 1-High Follow Up Date: Aug 08, 2018 Nutritional Comment: 08/05/18-Reviewed pt PMH. Admitted for multiple syncopal episodes. Pertinent PMH includes distal esphogectomy, DM, BPH, Hx of ETOH. Reviewed wt from previous visits shows significant downward trend. WT 05/14/16 was 154 lbs, 09/11/17 wt 148.5 lbs, current wt 132 lbs. Past visits pt had difficulty swallowing. Reviewed labs has elevated LFTs. BG WNL although has minimal intake reported 50% x 1 meal. Will continue to monitor wt and promote intake.LARISSA CHIN Aug 05, 2018 10:50
--- NOTE | 2018-08-05 15:00 | NUR ---
Physical Therapy Impression PT/OT co-eval complete. Upon arrival, Pt was sitting EOB ready to go to bathroom. CGAx1 provided for sit<>stand xfer to/from EOB. Pt ambulated 20 ft to bathroom with CGAx1 and use of RW. Pt with WBOS, shuffling gait, and appearing unsteady. Will require more cues on safe use of RW. During ambulation, HR susan to 155, pt reported that he was asymptomatic throughout session. RN present. SBA provided for sit to supine transfer.Pt left in bed, with all needs met, call light in reach, and nursing notified. Pt will benefit from further skilled PT care to improve strength to ensure safe ambulation/transfers. Recommendation pending progress Physical Therapy Goals 1. Vasile bed mobility 2. Vasile transfers with RW use 3. Vasile ambulation of 100 ft with use of least restrictive device 4. SBA ability to ascend/descend 3 stairs Patient's Goals
--- NOTE | 2018-08-05 15:38 | NUR ---
This Physical Therapist or [place] Technician was present for the entire physical therapy session directing the services, making the skilled judgement, and was not engaged in treating another patient or doing another task at the same time as the treatment session. Addendum: 08/05/18 at 1538 by DANI SNYDER PT Amended: Links added.
--- NOTE | 2018-08-05 15:45 | NUR ---
Occupational Therapy Impression SBA bed mobility in/out. Independent donning slippers. CGA sit<>stand and ambulation with RW to toilet. HR in 150s during functional mobility/standing for toileting. Pt asymptomatic, nursing present. Pt returned to supine in bed. Recommendations pending progress. Occupational Therapy Goals 1) Pt will be educated on appropriate fall prevention stratagies. 2) Pt will be educated on appropriate equipment needs. 3) Pt will be SBA toilet task. Patient's Goal
[2018-08-05] MEDS ORDERED: METOCLOPRAMIDE 10 MG/2 ML SDV IVP PRN (17:35)
--- NOTE | 2018-08-05 19:27 | Hospitalist Depart ---
Discharge Summary Reason for Hosp/Final Diag: (1) Syncope Status: Acute Hospital Course & Plan: Symptoms and findings thus far would be very concerning for possible cardiac dysrhythmia as the cause, EKG with LBBB and frequent PVC with varying morphology. He has also been having chest pains. I discussed this with Mr. Rai again and he reports understanding and still does not wish to be transferred for evaluation with cardiology. Serial troponins were negative. Echo did not demonstrate and significant abnormality and LV function was preserved. Recommend urgent follow up with cardiology as outpatient as patient r efused transfer for urgent evaluation. (2) Diabetes mellitus Status: Chronic Hospital Course & Plan: ADA diet, monitor glucoses and use insulin as needed. He has not been on anything other than short-acting insulin up to this point. (3) BPH (benign prostatic hyperplasia) Status: Chronic Hospital Course & Plan: Will continue his Flomax 0.4mg daily at bedtime. Departure Weight (Pounds): 132 Weight (Ounces): 1.0 Result Diagram: 08/05/1851908/05/18519 Condition: Improved Discharge: Home Discharge Code Status: DNR, DNI Discharge Instructions Home Meds Reported Medications Bupropion Hcl (BUPROPION HCL) 100 Mg Tablet, 100 MG PO DAILY, TAB 08/05/18 Aspirin (ASPIR 81) 81 Mg Tablet.dr, 81 MG PO QDAY, TAB 08/05/18 Omeprazole (OMEPRAZOLE) 20 Mg Capsule.dr, 1 CAP PO QDAY, CAP 08/05/18 Escitalopram Oxalate (ESCITALOPRAM OXALATE) 10 Mg Tablet, 20 MG PO QDAY, TAB 08/05/18 Insulin Aspart 100 Un/Ml Pen (NOVOLOG FLEXPEN) 100 Unit/1 Ml Insuln.pen, 100 UNIT SQ, ML 02/14/18 Thiamine Hcl (VITAMIN B-1) 250 Mg Tablet, 250 MG PO QDAY 02/14/18 Tamsulosin Hcl (TAMSULOSIN HCL) 0.4 Mg Cap.er.24h, 0.4 MG PO QDAY, CAP 12/01/17 Discontinued Reported Medications Bupropion Hcl (BUPROPION HCL) 100 Mg Tablet, 100 MG PO BID, TAB 08/05/18 Fluoxetine Hcl (FLUOXETINE HCL) 20 Mg Capsule, 40 MG PO QDAY, CAPSULE 08/05/18 Omeprazole (OMEPRAZOLE) 20 Mg Tablet.dr, 20 MG PO BID, TAB 08/05/18 Fluoxetine Hcl (FLUOXETINE HCL) 20 Mg Capsule, 20 MG PO QDAY, CAPSULE 02/14/18 Multivit-Min/Iron Fum/Folic AC (Davoo-Plymwps-Yuhazomh Tablet) 7.5 Mg Iron-400 Mcg Tablet, DAILY 12/01/17 Discontinued Scripts Tramadol Hcl (TRAMADOL HCL) 50 Mg Tablet, 50 MG PO Q6H PRN for PAIN, #10 TAB 0 Refills Prov:VAISHALI KIM DO 05/17/18 Insulin Lispro 100 Un/Ml Vial (HUMALOG 100 U/ML VIAL) 100 Unit/1 Ml Vial, 2-10 UNIT SUBQ SS PRN for SLIDING SCALE INSULIN, #1 VIAL 1 Refill Prov:LISHA MCDUFFIE MD 05/17/16 Diet: Regular Activity: No Exertion Special Instructions: Follow up with cardiology within one week for further evaluation of likely arrhythmia. Venous Thromboembolism Antithrombotics Is Pt On Any Antithrombotics?: Yes Problem Qualifiers (1) Syncope: Syncope type: unspecified Qualified Codes: R55 - Syncope and collapse KAYY ROGER DO Aug 05, 2018 19:27
[2018-08-05] MEDS ORDERED: TAMSULOSIN HCL 0.4 MG CAP PO SCH (21:00)
== END 2018-08-05 20:00 | disposition home or self-care (01) | DRG 310 ==
LOC: ER 21:24 → MED 08-05 00:49
PROVIDERS: ADMIT Internal Medicine; ATTEND Internal Medicine
DX: I49.3 Ventricular premature depolarization (principal); I44.7 Left bundle-branch block, unspecified; R55 Syncope and collapse; E11.9 Type 2 diabetes mellitus without complications; K44.9 Diaphragmatic hernia without obstruction or gangrene; K21.9 Gastro-esophageal reflux disease without esophagitis; F32.9 Major depressive disorder, single episode, unspecified; N40.0 Benign prostatic hyperplasia without lower urinary tract symptoms; E83.42 Hypomagnesemia; R07.9 Chest pain, unspecified; Z79.4 Long term (current) use of insulin; Z66 Do not resuscitate; Z85.01 Personal history of malignant neoplasm of esophagus; Z79.899 Other long term (current) drug therapy; Z90.411 Acquired partial absence of pancreas
CPT/HCPCS: 36415; 36416; 70450; 71045; 72125; 81001; 82040; 82247; 82310; 82374; 82435; 82565; 82947; 82948; 83735; 84075; 84132; 84155; 84295; 84443; 84450; 84460; 84484; 84520; 85025; 93005; 93306; 97161; 97167; J1650; J2270; J3475; J7030

== ENCOUNTER → 2018-09-09 | Outpatient (CLI) | payer OTHER ==
[2016-05-14 11:11] VITALS: BMI 21.5
[~2018-09-09] MED LIST changes: +BUPR-149 PO; +ESCI10TA8 PO; +OMEP-137 PO; +REGADENOSON 0.4 MG/5 ML SYR ONE
--- NOTE | 2018-09-09 16:13 | RADIOLOGY IMAGING REPORT ---
FACILITY: [facility] PATIENT NAME: Renard Rai : 1945 MR: [id number] V: [id number] EXAM DATE: ORDERING PHYSICIAN: MARTITA LOPEZ TECHNOLOGIST: Location: [facility] [place] Patient: Renard Rai : 1945 Visit/Account:[id number] Date of Sevice: 09/09/2018 EXAMINATION: Single isotope SPECT imaging with regadenoson infusion and gated SPECT imaging. DATE OF EXAMINATION: 09/09/2018. DATE OF INTERPRETATION: 09/09/2018. REQUESTING PHYSICIAN: MARTITA LOPEZ. INDICATION: The patient is a 73-year-old male evaluated for chest pain/left bundle branch block. PROCEDURE: After informed consent the patient received an intravenous injection of 12.2 mCi of Tc-99 m sestamibi followed at an appropriate time interval by rest imaging. The patient then subsequently received an intravenous infusion of 0.4 mg of regadenoson per protocol without complication. Resting heart rate was 86 bpm with a peak heart rate of 164 bpm. Blood pressure at rest was 111 / 71 and fo llowing infusion was 111 / 71. Baseline EKG demonstrates normal sinus rhythm, left bundle branch blo ck. There were no new EKG changes of ischemia following infusion. Symptoms were nonspecific. The p atient then received an intravenous injection of 27.8 mCi of Tc-99m sestamibi followed by stress imag ing. RAW DATA: Examination of the summed raw data revealed a fair quality study. MYOCARDIAL PERFUSION: The tomographic images demonstrate small, inferior defect at rest with some mi ld asia-infarct ischemia in the inferoseptal wall with stress. Findings highly suspicious for diaphra gmatic attenuation however no prone imaging was done to try to resolve the issue. GATED IMAGES: The gated images demonstrate septal wall dyskinesis, mildly reduced ejection fraction at 54%. IMPRESSION: 1. Fair quality study but no prone imaging performed 2. Abnormal myocardial perfusion scan. While images suggest prior inferior infarct with mild asia-in farct ischemia in the inferoseptal wall findings are also highly suspicious for diaphragmatic attenua tion but without prone imaging cannot exclude other possibility. 3. Mildly reduced LV systolic function; LVEF 54%. 4. Based on the results of this exam, the patient appears to be at low risk for future cardiovascular events but remains intermediate risk due to inability to exercise and possible suggestion of prior C AD. Report Dictated By: Fidencio Martinez at 09/09/2018 4:00 PM Report E-Signed By: Fidencio Martinez at 09/09/2018 4:05 PM WSN:[id number]
== END ==
LOC: NUC 01:54
PROVIDERS: ATTEND Nurse Practitioner Family
DX: R94.39 Abnormal result of other cardiovascular function study (principal)
CPT/HCPCS: 78452; 93017; A9500; J2785

== ENCOUNTER → 2018-10-04 | Outpatient (CLI) | payer OTHER ==
[2016-05-14 11:11] VITALS: BMI 21.5
[~2018-10-04] MED LIST changes: +ATR80PT PO; -REGADENOSON 0.4 MG/5 ML SYR ONE
== END ==
LOC: AMB 16:36
PROVIDERS: ATTEND Nurse Practitioner
DX: N19 Unspecified kidney failure (principal); R17 Unspecified jaundice; R32 Unspecified urinary incontinence
CPT/HCPCS: A0425; A0426